=== PATIENT | female | born 1980 | race Caucasian/White ===

== ENCOUNTER 2016-11-01 00:14 | Emergency (ER) | payer OTHER ==
[2016-11-01 00:51] VITALS: BP 112/65; PULSE 80; O2SAT 94
[2016-11-01] MEDS ORDERED: Phenergan 25 MG INJ IV ONE (00:57)
[2016-11-01] MEDS ORDERED: Sodium Chloride 0.9% 1000 ML 1,000 ML IV STA (00:57)
[2016-11-01] MEDS ORDERED: TORAdol 30 mg Injection IV ONE (00:59)
--- NOTE | 2016-11-01 01:04 | ERPHSYRPT ---
- History of Present Illness Time Seen by Provider: 11/01/16 00:32 Historian: patient Exam Limitations: no limitations Patient Subjective Stated Complaint: pt is co right lower quad pain redianting to righ back to right groin for 3 days po nv no fever -she is worried because of her historuy of ovarian cancer -she is out of her neurontin that she take for back pain Triage Nursing Assessment: pt is awake and alert and able to answer questions Physician History: FOR THE PAST 3 DAYS PT HAS HAD SHARP CRAMPING RIGHT LOWER QUADRANT ABDOMINAL PAIN WORSE TODAY WITH VOMITING X7. LAST BM WAS 2 HOURS AGO & WNL. PT DENIES CHEST PAIN, SHORTNESS OF AIR, DYSURIA. Allergies/Adverse Reactions: levofloxacin [From Levaquin] Allergy (Mild, Verified 05/06/16 16:09) morphine Allergy (Mild, Verified 05/06/16 16:09) Penicillins Allergy (Mild, Verified 05/06/16 16:09) pantoprazole sodium [From Protonix] Allergy (Verified 05/06/16 16:09) prednisone Allergy (Verified 05/06/16 16:09) naproxen [From Naprosyn] Adverse Reaction (Mild, Verified 05/06/16 16:09) NOSE BLEED Home Medications: Omeprazole Magnesium [Prilosec Otc] 20 mg PO DAILY 12/18/15 [History] Hydroxyzine Pamoate [Vistaril] 25 mg PO DAILY 02/13/16 [History] Tizanidine HCl 4 mg [Zanaflex 4 MG] 4 mg PO Q8HPRN PRN 05/06/16 [History] Hydrocodone Bit/Acetaminophen [[place] 7.5-325 Tablet] 1 each PO Q6HPRN PRN [History] Bupropion HCl 150 mg Sr [Wellbutrin SR 150 MG] 150 mg PO BID 06/24/16 [ History] Lorazepam 0.5 mg [Ativan 0.5 MG] 0.5 mg PO DAILY 06/24/16 [History] Hx Tetanus, Diphtheria Vaccination/Date Given: No Hx Influenza Vaccination/Date Given: No Hx Pneumococcal Vaccination/Date Given: Yes - Review of Systems Constitutional: No Fever Respiratory: No Dyspnea Cardiac: No Chest Pain Abdominal/Gastrointestinal: Abdominal Pain, Vomiting All Other Systems: Reviewed and Negative - Past Medical History Pertinent Past Medical History: Yes Neurological History: Migraines ENT History: No Pertinent History Cardiac History: Arrhythmia, Other Respiratory History: Asthma Endocrine Medical History: No Pertinent History Musculoskeletal History: Fibromyalgia, Osteoarthritis GI Medical History: Crohns Disease History: No Pertinent History Psycho-Social History: Anxiety Female Reproductive Disorders: Cervical Cancer, Ovarian Cancer Other Medical History: myocardial bridge, murmur, low blood pressure - Past Surgical History Past Surgical History: Yes Neuro Surgical History: No Pertinent History Cardiac: Cardiac Catheterization Respiratory: No Pertinent History Gastrointestinal: Cholecystectomy Genitourinary: No Pertinent History Musculoskeletal: No Pertinent History Female Surgical History: Section, Hysterectomy Other Surgical History: ABLASION UTERINE - Social History Smoking Status: Current every day smoker How long have you smoked: 16 Exposure to second hand smoke: Yes Drug Use: none Patient Lives Alone: No - Female History Hx Last Menstrual Period: hyst Hx Now: No - Nursing Vital Signs Nursing Vital Signs: Initial Vital Signs Temperature 98 F Temperature Source Tympanic Pulse Rate 80 Respiratory Rate 16 Blood Pressure [] 112/65 Pain Intensity 8 - Physical Exam General Appearance: alert Eye Exam: PERRL/EOMI Ears, Nose, Throat Exam: pharynx normal, moist mucous membranes Neck Exam: normal inspection Respiratory Exam: lungs clear Cardiovascular Exam: normal heart sounds Gastrointestinal/Abdomen Exam: soft, normal bowel sounds, tenderness (MILD SUPRAPUBIC AND RLQ ABDOMINAL TENDERNESS.) Back Exam: normal range of motion Extremity Exam: normal inspection, No pedal edema Neurologic Exam: alert, cooperative Skin Exam: warm, dry SpO2 Interpretation: normal SpO2: 94 Oxygen Delivery: Room Air - Course Nursing assessment & vital signs reviewed: Yes - Radiology Ultrasound Exam Pelvis Ultrasound: Other (TECH REPORT: NO OVARIES FOUND; NO ABSCESS.) Ordered Tests: Active Orders 24 hr Category Date Time Status IV Insertion STAT Care 11/01/16 00:57 Active PELVIC [US] Stat Exams 11/01/16 00:57 Ordered AMYLASE Stat Lab 11/01/16 01:25 Completed CBC W DIFF Stat Lab 11/01/16 01:25 Completed CMP Stat Lab 11/01/16 01:25 Completed LIPASE Stat Lab 11/01/16 01:25 Completed MAGNESIUM Stat Lab 11/01/16 01:25 Completed UA W/ MICROSCOPIC Stat Lab 11/01/16 02:00 Completed Medication Summary Generic Name Dose Route Start Last Admin Trade Name Viridiana PRN Reason Stop Dose Admin Magnesium Oxide 400 mg 11/01/16 10:00 Mag-Ox 400 PO 12/01/16 09:59 BID ALENA Discontinued Medications Generic Name Dose Route Start Last Admin Trade Name Viridiana PRN Reason Stop Dose Admin Sodium Chloride 1,000 mls @ 999 mls/hr 11/01/16 00:57 11/01/16 01:30 Sodium Chloride 0.9% 1000 Ml IV 11/01/16 01:57 999 mls/hr .Q1H1M STA Administration Sodium Chloride Confirm 11/01/16 01:26 Sodium Chloride 0.9% 1000 Ml Administered 11/01/16 01:27 Dose 1,000 mls @ ud .ROUTE .STK-MED ONE Ketorolac Tromethamine 30 mg 11/01/16 00:59 11/01/16 01:30 Toradol 30 Mg Injection IV 11/01/16 01:00 30 mg STAT ONE Administration Ketorolac Tromethamine Confirm 11/01/16 01:26 Toradol 30 Mg Injection Administered 11/01/16 01:27 Dose 30 mg .ROUTE .STK-MED ONE Promethazine HCl 12.5 mg 11/01/16 00:57 11/01/16 01:30 Phenergan 25 Mg Inj IV 11/01/16 00:58 12.5 mg STAT ONE Administration Promethazine HCl Confirm 11/01/16 01:26 Phenergan 25 Mg Inj Administered 11/01/16 01:27 Dose 25 mg .ROUTE .STK-MED ONE Lab/Rad Data: Laboratory Result Diagrams 11/01/16 01:25 11/01/16 01:25 Laboratory Results 11/01/16 11/01/16 11/01/16 Range/Units 02:00 01:25 01:25 WBC 7.2 (4.0-10.5) K/mm3 RBC 5.23 (4.1-5.4) M/mm3 Hgb 14.4 (12.0-16.0) gm/dl Hct 45.4 (35-47) % MCV 86.8 (78-100) fl MCH 27.5 (26-32) pg MCHC 31.7 L (32-36) g/dl RDW 15.1 H (11.5-14.0) % Plt Count 265 (150-450) K/mm3 MPV 10.8 H (6-9.5) fl Gran % 47.6 (36.0-66.0) % Lymphocytes % 40.5 (24.0-44.0) % Monocytes % 9.5 (0.0-12.0) % Eosinophils % 2.1 (0.00-5.0) % Basophils % 0.3 (0.0-0.4) % Basophils # 0.02 (0-0.4) Sodium 142 (136-145) mEq/L Potassium 3.5 (3.5-5.1) mEq/L Chloride 106 (98-107) mEq/L Carbon Dioxide 28.3 (21-32) mEq/L Anion Gap 11.4 (5-15) MEQ/L BUN 9 (9-20) mg/dL Creatinine 1.03 (0.55-1.30) mg/dl Estimated GFR > 60 ML/MIN Glucose 100 (70-110) MG/DL Calcium 8.8 (8.5-10.1) mg/dL Magnesium 1.7 L (1.8-2.4) mg/dL Total Bilirubin 0.3 (0.2-1.0) mg/dL AST 14 L (15-37) U/L ALT 21 (12-78) U/L Alkaline Phosphatase 80 (46-116) U/L Serum Total Protein 6.3 L (6.4-8.2) gm/dL Albumin 2.9 L (3.4-5.0) g/dL Amylase 28 (25-115) U/L Lipase 75 (73-393) U/L Ur Collection Type CLEAN CATCH Urine Color YELLOW (YELLOW) Urine Appearance CLOUDY (CLEAR) Urine pH 6.0 (5-6) Ur Specific [place] >=1.030 (1.005-1.025) Urine Protein 30 (Negative) Urine Glucose (UA) NEGATIVE (NEGATIVE) mg/dL Urine Ketones TRACE (NEGATIVE) Urine Nitrite NEGATIVE (NEGATIVE) Urine Bilirubin NEGATIVE (NEGATIVE) Urine Urobilinogen 0.2 (0-1) mg/dL Urine WBC (Auto) NEGATIVE (NEGATIVE) Urine RBC (Auto) NEGATIVE (0-5) Mateo/ul Ur Epithelial Cells FEW (FEW) /HPF Urine Bacteria RARE (NEGATIVE) /HPF Urine Mucus SLIGHT (NEGATIVE) /HPF Specimen Received 11/01/16:0200 - Departure Time of Disposition: 02:33 Departure Disposition: Home Clinical Impression: ABDOMINAL PAIN, HYPOMAGNESEMIA, FIBROMYALGIA, CROHN'S DISEASE, ANXIETY Condition: Fair Critical Care Time: No Instructions: Abdominal Pain-Adult Additional Instructions: FOLLOW UP WITH PRIVATE DOCTOR TOMORROW. Prescriptions: Promethazine HCl 25 mg [Phenergan 25 mg] 25 mg PO Q4H PRN PRN #14 tablet PRN Reason: Nausea/Vomiting
[2016-11-01] MEDS ORDERED: TORAdol 30 mg Injection ONE (01:26)
[2016-11-01] MEDS ORDERED: Sodium Chloride 0.9% 1000 ML 1,000 ML ONE (01:26)
[2016-11-01] MEDS ORDERED: Phenergan 25 MG INJ ONE (01:26)
[2016-11-01 01:34] LABS: BASOPHIL % 0.3 % (0.0-0.4); Eosinophil % 2.1 % (0.00-5.0); Granulocytes % 47.6 % (36.0-66.0); Lymphocytes % 40.5 % (24.0-44.0); Mean Cell Volume 86.8 fl (78-100); Mean Corpuscular Hemoglobin 27.5 pg (26-32); Mean Platelet Volume 10.8 fl (6-9.5); Monocytes % 9.5 % (0.0-12.0); Platelet Count 265 K/mm3 (150-450); Red Blood Count 5.23 M/mm3 (4.1-5.4); Red Cell Distribution Width 15.1 % (11.5-14.0); White Blood Count 7.2 K/mm3 (4.0-10.5)
[2016-11-01 01:53] LABS: BLOOD UREA NITROGEN 9 mg/dL (9-20)
[2016-11-01 02:08] LABS: Collection Type CLEAN CATCH
[2016-11-01 02:12] LABS: Bacteria RARE /HPF (NEGATIVE); COMPLETE URINE MICROSCOPIC? YES; Epithelial Cells FEW /HPF (FEW); Mucus SLIGHT /HPF (NEGATIVE)
[2016-11-01 02:23] LABS: ALBUMIN 2.9 g/dL (3.4-5.0); ALKALINE PHOSPHATASE 80 U/L (46-116); ANION GAP 11.4 MEQ/L (5-15); BILIRUBIN,TOTAL 0.3 mg/dL (0.2-1.0); CHLORIDE 106 mEq/L (98-107); Carbon Dioxide 28.3 mEq/L (21-32); Glucose 100 MG/DL (70-110); LIPASE 75 U/L (73-393); MAGNESIUM 1.7 mg/dL (1.8-2.4); Potassium 3.5 mEq/L (3.5-5.1); SGOT/AST 14 U/L (15-37); SGPT/ALT 21 U/L (12-78); SODIUM 142 mEq/L (136-145); Total Protein 6.3 gm/dL (6.4-8.2)
[2016-11-01] MEDS ORDERED: MAG-OX 400 ONE (02:39)
[2016-11-01] MEDS ORDERED: MAG-OX 400 PO SCH (10:00)
--- NOTE | 2016-11-01 10:05 | XRAY ---
Indication: Right lower quadrant pain. Partial hysterectomy including left oophorectomy. Two-dimensional transabdominal and transvaginal pelvic ultrasound was performed. Comparison: July 28, 2012 Uterus is now surgically absent. Neither left or right ovaries are seen. No suspicious solid/cystic pelvic mass or fluid collection. Impression: Uterus and ovaries not seen. No suspicious pelvic mass or fluid collection. Comment: Preliminary report was given.
== END 2016-11-01 03:30 | disposition home or self-care (01) ==
LOC: ED 00:14
DX: R10.31 Right lower quadrant pain (principal); E83.42 Hypomagnesemia; M79.7 Fibromyalgia; K50.90 Crohn's disease, unspecified, without complications; F41.9 Anxiety disorder, unspecified
CPT/HCPCS: 36000; 36415; 76856; 80053; 81000; 82150; 83690; 83735; 85025; 96365; 96374; 96375; 99283; J1885; J2550

== ENCOUNTER 2016-12-22 18:16 | Emergency (ER) | payer OTHER ==
[2016-12-22] MEDS ORDERED: DECADRON 10MG INJ. IM ONE (18:48)
[2016-12-22] MEDS ORDERED: ZOFRAN ODT 4 MG PO ONE (18:48)
[2016-12-22] MEDS ORDERED: ZOFRAN ODT 4 MG ONE (18:50)
[2016-12-22] MEDS ORDERED: DECADRON 10MG INJ. ONE (18:51)
--- NOTE | 2016-12-22 18:53 | ERPHSYRPT ---
- History of Present Illness Time Seen by Provider: 12/22/16 18:47 Source: patient Patient Subjective Stated Complaint: pt states she has had a fever and cough for the past 24 hrs. Triage Nursing Assessment: pt pink, warm, dry. lung sounds coarse throughout. Physician History: CC: cough Hx: 36 y/o patient with hx of asthma. She has one day hx of cough, myalgias, sore throat, headache. Cough worse despite nebs and almost out of inhaler. No hx of DM. Not . Symptoms moderate. Timing/Duration: yesterday Cough Quality/Degree: mild, moderate Allergies/Adverse Reactions: levofloxacin [From Levaquin] Allergy (Mild, Verified 12/22/16 18:36) morphine Allergy (Mild, Verified 12/22/16 18:36) Penicillins Allergy (Mild, Verified 12/22/16 18:36) pantoprazole sodium [From Protonix] Allergy (Verified 12/22/16 18:36) prednisone Allergy (Verified 12/22/16 18:36) naproxen [From Naprosyn] Adverse Reaction (Mild, Verified 12/22/16 18:36) NOSE BLEED Hx Tetanus, Diphtheria Vaccination/Date Given: Yes (up to date) Hx Influenza Vaccination/Date Given: No Hx Pneumococcal Vaccination/Date Given: No Immunizations Up to Date: Yes - Review of Systems Constitutional: Fever, Chills, Fatigue, Malaise Eyes: No Symptoms Ears, Nose, & Throat: Throat Pain Respiratory: Cough Abdominal/Gastrointestinal: No Abdominal Pain, No Nausea, No Vomiting, No Diarrhea Skin: No Rash Neurological: Headache All Other Systems: Reviewed and Negative - Past Medical History Pertinent Past Medical History: Yes Neurological History: Migraines ENT History: No Pertinent History Cardiac History: Arrhythmia, Other Respiratory History: Asthma Endocrine Medical History: No Pertinent History Musculoskeletal History: Fibromyalgia, Osteoarthritis GI Medical History: Crohns Disease History: No Pertinent History Psycho-Social History: Anxiety Female Reproductive Disorders: Cervical Cancer, Ovarian Cancer Other Medical History: myocardial bridge, murmur, low blood pressure - Past Surgical History Past Surgical History: Yes Neuro Surgical History: No Pertinent History Cardiac: Cardiac Catheterization Respiratory: No Pertinent History Gastrointestinal: Cholecystectomy Genitourinary: No Pertinent History Musculoskeletal: No Pertinent History Female Surgical History: Section, Hysterectomy Other Surgical History: ABLASION UTERINE - Social History Smoking Status: Current every day smoker How long have you smoked: 15 Exposure to second hand smoke: Yes Drug Use: none Patient Lives Alone: No - Female History Hx Last Menstrual Period: hyster Hx Now: No - Nursing Vital Signs Nursing Vital Signs: Initial Vital Signs Temperature 98.1 F Pulse Rate 99 Respiratory Rate 18 Blood Pressure [Left Arm] 106/67 Pain Intensity 7 - Physical Exam General Appearance: alert Eye Exam: PERRL/EOMI Ears, Nose, Throat Exam: normal ENT inspection, moist mucous membranes Neck Exam: normal inspection, non-tender, supple Respiratory Exam: wheezing (faint scattered) Cardiovascular Exam: regular rate/rhythm Gastrointestinal/Abdomen Exam: soft, No tenderness, No distention, No mass, No guarding Back Exam: normal inspection, normal range of motion Extremity Exam: normal inspection, normal range of motion Neurologic Exam: alert, oriented x 3, cooperative Skin Exam: warm, dry, No rash SpO2 Interpretation: normal SpO2: 98 Oxygen Delivery: Room Air - Course Nursing assessment & vital signs reviewed: Yes - Progress Progress Note: 12/22/16 18:51 She likely has flu and asthmatic bronchitis. Needs refill of alb MDI. She chose IM kenalog over po prednisone. Will release with instructions. Counseled pt/family regarding: diagnosis, need for follow-up - Departure Time of Disposition: 18:52 Departure Disposition: Home Clinical Impression: flu like syndrome, Acute asthma exacerbation Condition: Stable Critical Care Time: No Referrals: SLADE SHEPPARD MD [Primary Care Provider] - Instructions: Fever (Symptom) -- Adult, Viral Upper Respiratory Infection -- Adult, Asthma -- Adult Additional Instructions: UPPER RESPIRATORY INFECTIONS 1. The signs and symptoms of a cold may last up to 10 days. These illnesses are due to viruses which are not treatable with antibiotics. 2. The following suggestions can aid in recovery and to minimize symptoms: A. Increase fluid intake. B. Acetaminophen or Ibuprofen as directed. C. Avoid smoking environments as this will increase the risk of developing pneumonia. D. For children, may use a cool mist vaporizer in the child's room. 3. Contact your Family Physician if you note: A. Persisten fever >103 for more than 3 days B. Breathing difficulty C. Productive cough of yellow/green sputum D. Illness greater than 7 days E. Persistent vomiting F. Stiff neck Rx albuterol Rx zofran ODT as needed for nausea Drink plenty of fluids Prescriptions: Ondansetron [Zofran Odt] 4 mg PO Q6HPRN PRN #10 tab.rapdis PRN Reason: Nausea/Vomiting Albuterol Sulfate [Albuterol Sulfate Hfa] 2 puff IH Q4-6HPRN PRN #1 hfa.[email or web address] PRN Reason: cough or wheeze
[2016-12-22 18:59] VITALS: BP 117/60; PULSE 87; O2SAT 99
== END 2016-12-22 18:58 | disposition home or self-care (01) ==
LOC: ED 18:16
DX: J45.901 Unspecified asthma with (acute) exacerbation (principal); R50.9 Fever, unspecified; R05 Cough; J02.9 Acute pharyngitis, unspecified; R51 Headache
CPT/HCPCS: 96372; 99284; J1100; Q0162

== ENCOUNTER 2016-12-29 15:24 | Observation (INO) | payer OTHER ==
[2016-12-29] MEDS ORDERED: PROVENTIL 2.5 MG/3 ML NEB IH ONE ×4 (15:36→16:18)
[2016-12-29] MEDS ORDERED: DUONEB 0.5-3 MG/3 ml Neb IH ONE ×2 (15:36→15:48)
[2016-12-29] MEDS ORDERED: DECADRON 10MG INJ. IM ONE (15:36)
[2016-12-29] MEDS ORDERED: TYLENOL 325 MG PO ONE (15:37)
[2016-12-29] MEDS ORDERED: DECADRON 10MG INJ. ONE (15:39)
[2016-12-29] MEDS ORDERED: TYLENOL 325 MG ONE (15:39)
--- NOTE | 2016-12-29 15:44 | ERPHSYRPT ---
- History of Present Illness Time Seen by Provider: 12/29/16 15:26 Source: patient Patient Subjective Stated Complaint: PT REPORTS BEING DX WITH THE FLU A FEW DAYS AGO OR LAST WEEK-STATES SHE HAS HAD A NONPRODUCTIVE COUGH-STATES THIS AM SHE WOKE UP IN AN ASTHMA ATTACK Triage Nursing Assessment: PT PINK WARM ET DRY-AUDIBLE WHEEZES NOTED-SLIGHT RETRACTION SNTOED-PT ABLE TO SPEAK IN SHORT SENTENCES ONLY Physician History: CC: cough Hx: 36 y/o hysterectomized patient of Dr Sheppard with hx of asthma and smoking. She awoke today with asthma, cough, wheezing. She used her neb at 8AM. She had decadron shot two weeks ago for URI. No fever or chills. Severity of Dyspnea-Max: moderate Severity of Dyspnea-Current: moderate Allergies/Adverse Reactions: levofloxacin [From Levaquin] Allergy (Mild, Verified 12/29/16 15:29) morphine Allergy (Mild, Verified 12/29/16 15:29) Penicillins Allergy (Mild, Verified 12/29/16 15:29) pantoprazole sodium [From Protonix] Allergy (Verified 12/29/16 15:29) prednisone Allergy (Verified 12/29/16 15:29) naproxen [From Naprosyn] Adverse Reaction (Mild, Verified 12/29/16 15:29) NOSE BLEED Home Medications: Lorazepam 0.5 mg [Ativan 0.5 MG] 0.5 mg PO UD PRN 12/29/16 [History] Hx Tetanus, Diphtheria Vaccination/Date Given: Yes Hx Influenza Vaccination/Date Given: No Hx Pneumococcal Vaccination/Date Given: No Immunizations Up to Date: Yes - Review of Systems Constitutional: Fatigue, Malaise, No Fever, No Chills Eyes: No Symptoms Ears, Nose, & Throat: No Symptoms Respiratory: Cough, Dyspnea, Wheezing Cardiac: No Chest Pain Abdominal/Gastrointestinal: No Abdominal Pain, No Nausea, No Vomiting Skin: No Rash Neurological: No Focal Weakness, No Headache All Other Systems: Reviewed and Negative - Past Medical History Pertinent Past Medical History: Yes Neurological History: Migraines ENT History: No Pertinent History Cardiac History: Arrhythmia, Other Respiratory History: Asthma Endocrine Medical History: No Pertinent History Musculoskeletal History: Fibromyalgia, Osteoarthritis GI Medical History: Crohns Disease History: No Pertinent History Psycho-Social History: Anxiety Female Reproductive Disorders: Cervical Cancer, Ovarian Cancer Other Medical History: myocardial bridge, murmur, low blood pressure - Past Surgical History Past Surgical History: Yes Neuro Surgical History: No Pertinent History Cardiac: Cardiac Catheterization Respiratory: No Pertinent History Gastrointestinal: Cholecystectomy Genitourinary: No Pertinent History Musculoskeletal: No Pertinent History Female Surgical History: Section, Hysterectomy Other Surgical History: ABLASION UTERINE - Social History Smoking Status: Current every day smoker How long have you smoked: 15 Exposure to second hand smoke: Yes Drug Use: none Patient Lives Alone: No - Female History Hx Last Menstrual Period: HYSTERECTOMY Hx Now: No - Nursing Vital Signs Nursing Vital Signs: Initial Vital Signs Temperature 98.7 F Temperature Source Oral Pulse Rate 82 Respiratory Rate 18 Blood Pressure [Right Arm] 102/63 Pain Intensity 7 - Physical Exam General Appearance: alert, obese Eye Exam: PERRL/EOMI Ears, Nose, Throat Exam: normal pharynx Neck Exam: normal inspection, supple Respiratory Exam: wheezing (some tachypnea, talks in full sentences) Cardiovascular/Chest Exam: regular rate/rhythm Abdominal/Gastrointestinal Exam: soft, No tenderness, No distention Extremity Exam: non-tender, normal range of motion, no calf tenderness, no pedal edema Neurologic Exam: alert, oriented x 3, cooperative, sensation nml, No motor deficits Skin Exam: warm, dry, No rash SpO2 Interpretation: normal SpO2: 96 Oxygen Delivery: Room Air - Course Nursing assessment & vital signs reviewed: Yes EKG Interpreted by Me: RATE (78), Sinus Rhythm, NORMAL AXIS, NORMAL INTERVALS ( QTc 446), Non-specific ST Changes Ordered Tests: Active Orders 24 hr Category Date Time Status Allergist/Md STAT Care 12/29/16 17:46 Active EKG-ER Only STAT Care 12/29/16 17:46 Active Oxygen-ED Only NASAL CANNULA 2 lpm Care 12/29/16 18:45 Active Pulse Oximetry (ED) STAT Care 12/29/16 17:04 Active CHEST 1 VIEW (PORTABLE) Stat Exams 12/29/16 15:36 Completed CBC W DIFF Stat Lab 12/29/16 17:20 Completed CMP Stat Lab 12/29/16 17:20 Completed MAGNESIUM Stat Lab 12/29/16 17:20 Completed Respiratory Nebulizer STAT RT 12/29/16 15:36 Completed Respiratory Nebulizer STAT RT 12/29/16 16:18 Completed Medication Summary Generic Name Dose Route Start Last Admin Trade Name Viridiana PRN Reason Stop Dose Admin Magnesium Sulfate/Dextrose 100 mls @ 100 mls/hr 12/29/16 17:15 12/29/16 17:38 Magnesium 1 Gm / 100 Ml D5w IV 12/29/16 19:14 100 mls/hr Q1H ALENA Administration Discontinued Medications Generic Name Dose Route Start Last Admin Trade Name Viridiana PRN Reason Stop Dose Admin Acetaminophen 650 mg 12/29/16 15:37 12/29/16 15:40 Tylenol 325 Mg PO 12/29/16 15:38 650 mg STAT ONE Administration Acetaminophen Confirm 12/29/16 15:39 Tylenol 325 Mg Administered 12/29/16 15:40 Dose 650 mg .ROUTE .STK-MED ONE Albuterol Sulfate 2.5 mg 12/29/16 15:36 12/29/16 16:07 Proventil 2.5 Mg/3 Ml Neb IH 12/29/16 15:37 2.5 mg STAT ONE Administration Albuterol Sulfate Confirm 12/29/16 15:48 Proventil 2.5 Mg/3 Ml Neb Administered 12/29/16 15:49 Dose 2.5 mg IH .STK-MED ONE Albuterol Sulfate 2.5 mg 12/29/16 16:18 12/29/16 16:25 Proventil 2.5 Mg/3 Ml Neb IH 12/29/16 16:19 2.5 mg STAT ONE Administration Albuterol Sulfate Confirm 12/29/16 16:18 Proventil 2.5 Mg/3 Ml Neb Administered 12/29/16 16:19 Dose 2.5 mg IH .STK-MED ONE Albuterol/Ipratropium 3 ml 12/29/16 15:36 12/29/16 15:52 Duoneb 0.5-3 Mg/3 Ml Neb IH 12/29/16 15:37 3 ml STAT ONE Administration Albuterol/Ipratropium Confirm 12/29/16 15:48 Duoneb 0.5-3 Mg/3 Ml Neb Administered 12/29/16 15:49 Dose 3 ml IH .STK-MED ONE Dexamethasone Sodium Phosphate 10 mg 12/29/16 15:36 12/29/16 15:41 Decadron 10mg Inj. IM 12/29/16 15:37 10 mg STAT ONE Administration Dexamethasone Sodium Phosphate Confirm 12/29/16 15:39 Decadron 10mg Inj. Administered 12/29/16 15:40 Dose 10 mg .ROUTE .STK-MED ONE Hydroxyzine HCl 50 mg 12/29/16 17:04 12/29/16 17:38 Vistaril 50 Mg/Ml IM 12/29/16 17:05 50 mg STAT ONE Administration Hydroxyzine HCl Confirm 12/29/16 17:36 Vistaril 50 Mg/Ml Administered 12/29/16 17:37 Dose 50 mg IM .STK-MED ONE Magnesium Sulfate/Dextrose Confirm 12/29/16 17:37 Magnesium 1 Gm / 100 Ml D5w Administered 12/29/16 17:38 Dose 200 mls @ ud IV .STK-MED ONE Potassium Bicarbonate 50 meq 12/29/16 17:46 12/29/16 17:54 K-Lyte 25 Meq PO 12/29/16 17:47 50 meq STAT ONE Administration Potassium Bicarbonate Confirm 12/29/16 17:49 K-Lyte 25 Meq Administered 12/29/16 17:50 Dose 50 meq .ROUTE .STK-MED ONE Lab/Rad Data: Laboratory Result Diagrams 12/29/16 17:20 12/29/16 17:20 Laboratory Results 12/29/16 12/29/16 12/29/16 Range/Units 17:20 17:20 17:20 WBC 17.0 H (4.0-10.5) K/mm3 RBC 5.07 (4.1-5.4) M/mm3 Hgb 14.5 (12.0-16.0) gm/dl Hct 43.0 (35-47) % MCV 84.8 (78-100) fl MCH 28.6 (26-32) pg MCHC 33.7 (32-36) g/dl RDW 15.1 H (11.5-14.0) % Plt Count 228 (150-450) K/mm3 MPV 11.1 H (6-9.5) fl Gran % 79.4 H (36.0-66.0) % Lymphocytes % 15.3 L (24.0-44.0) % Monocytes % 5.0 (0.0-12.0) % Eosinophils % 0.2 (0.00-5.0) % Basophils % 0.1 (0.0-0.4) % Basophils # 0.02 (0-0.4) Sodium 140 (136-145) mEq/L Potassium 2.6 L* (3.5-5.1) mEq/L Chloride 105 (98-107) mEq/L Carbon Dioxide 25.8 (21-32) mEq/L Anion Gap 12.9 (5-15) MEQ/L BUN 10 (9-20) mg/dL Creatinine 0.91 (0.55-1.30) mg/dl Estimated GFR > 60 ML/MIN Glucose 124 H (70-110) MG/DL Calcium 8.5 (8.5-10.1) mg/dL Magnesium 1.7 L (1.8-2.4) mg/dL Total Bilirubin 0.6 (0.2-1.0) mg/dL AST 28 (15-37) U/L ALT 65 (12-78) U/L Alkaline Phosphatase 88 (46-116) U/L Serum Total Protein 6.8 (6.4-8.2) gm/dL Albumin 3.0 L (3.4-5.0) g/dL - Progress Progress Note: 12/29/16 15:44 IM decadron given. 12/29/16 16:26 Procedures: [id number] RAD/CHEST 1 VIEW (PORTABLE) Indication: Cough. Comparison: January 13, 2014. Portable chest remains clear. Heart and mediastinal structures within normal limits for AP portable technique. Bony thorax intact. Impression: Stable nonacute chest. Reported by: EVE CORDOVA DO Signed by: EVE CORDOVA DO Signed date/ time: 12/29/16 1613 12/29/16 18:47 K low. PO K given. She still ius wheezing despite steroids and nebs. She prefers obs. RA pulse ox 88-91%. Called Dr Suarez for [place] and will place in obs. Counseled pt/family regarding: lab results, diagnosis, need for follow-up, rad results - Departure Time of Disposition: 18:48 Departure Disposition: Observation Clinical Impression: Hypokalemia Acute asthma exacerbation Qualifiers: Asthma severity: moderate persistent Qualified Code(s): J45.41 - Moderate persistent asthma with (acute) exacerbation Condition: Fair Critical Care Time: No Referrals: SLADE SHEPPARD MD [Primary Care Provider] -
--- NOTE | 2016-12-29 16:13 | XRAY ---
Indication: Cough. Comparison: January 13, 2014. Portable chest remains clear. Heart and mediastinal structures within normal limits for AP portable technique. Bony thorax intact. Impression: Stable nonacute chest.
[2016-12-29] MEDS ORDERED: Vistaril 50 MG/ML IM ONE ×2 (17:04→17:36)
[2016-12-29 17:23] LABS: BASOPHIL % 0.1 % (0.0-0.4); Eosinophil % 0.2 % (0.00-5.0); Granulocytes % 79.4 % (36.0-66.0); Lymphocytes % 15.3 % (24.0-44.0); Mean Cell Volume 84.8 fl (78-100); Mean Corpuscular Hemoglobin 28.6 pg (26-32); Mean Platelet Volume 11.1 fl (6-9.5); Platelet Count 228 K/mm3 (150-450); Red Blood Count 5.07 M/mm3 (4.1-5.4); Red Cell Distribution Width 15.1 % (11.5-14.0)
[2016-12-29] MEDS ORDERED: Magnesium 1 Gm / 100 Ml D5W*** 200 ML IV ONE (17:37)
[2016-12-29] MEDS: Magnesium 1 Gm / 100 Ml D5W*** 100 ML IV SCH ×2 (17:38→18:50)
[2016-12-29 17:45] LABS: ALKALINE PHOSPHATASE 88 U/L (46-116); ANION GAP 12.9 MEQ/L (5-15); BILIRUBIN,TOTAL 0.6 mg/dL (0.2-1.0); BLOOD UREA NITROGEN 10 mg/dL (9-20); CHLORIDE 105 mEq/L (98-107); Carbon Dioxide 25.8 mEq/L (21-32); Glucose 124 MG/DL (70-110); SGOT/AST 28 U/L (15-37); SGPT/ALT 65 U/L (12-78); SODIUM 140 mEq/L (136-145); Total Protein 6.8 gm/dL (6.4-8.2)
[2016-12-29] MEDS ORDERED: K-LYTE 25 MEQ PO ONE (17:46)
[2016-12-29 17:47] LABS: Potassium 2.6 mEq/L (3.5-5.1)
[2016-12-29] MEDS ORDERED: K-LYTE 25 MEQ ONE (17:49)
[2016-12-29] MEDS ORDERED: Vibramycin 100 MG PO ONE (18:49)
[2016-12-29] MEDS ORDERED: Vibramycin 100 MG ONE (18:52)
[2016-12-29] MEDS ORDERED: BABY ASPIRIN 81 MG CHEW PO ONE (20:03)
[2016-12-29] MEDS ORDERED: Nitrostat 0.4 MG (ED) SL ONE ×3 (20:04→23:21)
[2016-12-29 20:37] LABS: Potassium 2.8 mEq/L (3.5-5.1); TROPONIN < 0.017 ng/ml (0.000-0.056)
[2016-12-29] MEDS ORDERED: D5w/0.45NS W/ 40MEQ KCl 1000 Ml 1,000 ML IV ONE (20:45)
[2016-12-29] MEDS ORDERED: TYLENOL 325 MG PO PRN (20:55)
[2016-12-29] MEDS: DUONEB 0.5-3 MG/3 ml Neb IH SCH (21:28)
[2016-12-29] MEDS: D5w/0.45NS W/ 40MEQ KCl 1000 Ml 1,000 ML IV SCH (21:30)
[2016-12-29] MEDS ORDERED: PROVENTIL 2.5 MG/3 ML NEB IH PRN (21:59)
[2016-12-29] MEDS: NORCO 7.5/325 MG TAB PO PRN (22:18)
[2016-12-29] MEDS: Ativan 0.5 MG PO PRN (22:19)
[2016-12-29] MEDS: Pepcid 20 MG VIAL IV SCH (22:46)
[2016-12-29] MEDS: Klor Con 10 MEQ PO SCH (22:46)
[2016-12-29] MEDS: Vibramycin 100 MG PO SCH (22:47)
[2016-12-29] MEDS ORDERED: BABY ASPIRIN 81 MG CHEW ONE (23:21)
[2016-12-30] MEDS: DUONEB 0.5-3 MG/3 ml Neb IH SCH ×7 (03:18→23:43)
[2016-12-30 05:49] LABS: ANION GAP 13.1 MEQ/L (5-15); BLOOD UREA NITROGEN 14 mg/dL (9-20); CHLORIDE 107 mEq/L (98-107); Carbon Dioxide 25.5 mEq/L (21-32); Glucose 194 MG/DL (70-110); Potassium 3.6 mEq/L (3.5-5.1); SODIUM 142 mEq/L (136-145)
[2016-12-30] MEDS: D5w/0.45NS W/ 40MEQ KCl 1000 Ml 1,000 ML IV SCH ×2 (06:25→23:30)
--- NOTE | 2016-12-30 08:26 | PCM.HP ---
History of Present Illness - Chief Complaint Chief Complaint: asthma History of Present Illness: is a 36 year old female with a history of asthma who presented to the ER with 1 week of cough, shortness of breath and feeling poorly. She was diagnosed with flu last week and given IM steroid shot and sent home from ER, returned worse yesterday. Cough is nonproductive, no recent fever. - Review of Systems Constitutional: No Fever, No Chills Respiratory: Cough, Wheezing Cardiac: No Symptoms Abdominal/Gastrointestinal: No Abdominal Pain, No Nausea, No Vomiting, No Diarrhea Skin: No Rash All Other Systems: Reviewed and Negative Medications & Allergies Home Medications: Home Medication List Albuterol Sulfate [Albuterol Sulfate Hfa] 2 puff IH Q4-6HPRN PRN #1 hfa.aer.ad 12/22/16 [Rx Confirmed 12/29/16] Hydrocodone Bit/Acetaminophen [[place] 7.5-325 Tablet] 1 each PO Q8H PRN PRN 12/29 [History Confirmed 12/29/16] Lorazepam 0.5 mg [Ativan 0.5 MG] 0.5 mg PO UD PRN 12/29/16 [History Confirmed 12/29/16] Allergies/Adverse Reactions: Allergies Allergy/AdvReac Type Severity Reaction Status Date / Time levofloxacin [From Levaquin] Allergy Mild Verified 12/29/16 15:29 morphine Allergy Mild Verified 12/29/16 15:29 Penicillins Allergy Mild Verified 12/29/16 15:29 pantoprazole sodium Allergy Verified 12/29/16 15:29 [From Protonix] prednisone Allergy Verified 12/29/16 15:29 naproxen [From Naprosyn] AdvReac Mild Verified 12/29/16 15:29 - Past Medical History Past Medical History: Yes Neurological History: Migraines ENT History: No Pertinent History Cardiac History: Arrhythmia, Other Respiratory History: Asthma Endocrine Medical History: No Pertinent History Musculoskelatal History: Fibromyalgia, Osteoarthritis GI Medical History: Crohns Disease History: No Pertinent History Pyscho-Social History: Anxiety Reproductive Disorders: Cervical Cancer, Ovarian Cancer Comment: myocardial bridge, murmur, low blood pressure - Female History Hx Last Menstrual Period: HYSTERECTOMY Are you now?: No - Past Surgical History Past Surgical History: Yes Neuro Surgical History: No Pertinent History Cardiac History: Cardiac Catheterization Respiratory Surgery: No Pertinent History GI Surgical History: Cholecystectomy Genitourinary Surgical Hx: No Pertinent History Musculskeletal Surgical Hx: No Pertinent History Female Surgical History: Section, Hysterectomy Other Surgical History: ABLASION UTERINE. Mass removed form left ovary - Social History Smoking Status: Current every day smoker How long have you smoked: 17 Exposure to second hand smoke: Yes Alcohol: None Drug Use: none - Physical Exam Vital Signs: Vital Signs - 24 hr Temp Pulse Resp BP Pulse Ox 12/30/16 07:53 98.6 F 61 18 110/56 97 12/30/16 07:30 79 21 97 12/30/16 04:00 98.0 F 74 22 86/49 94 L 12/30/16 03:18 74 22 94 L 12/30/16 00:00 98 F 106 H 20 90/50 93 L 12/29/16 22:28 99 F 97 H 22 102/57 94 L 12/29/16 21:28 73 20 95 12/29/16 20:21 93/67 12/29/16 20:20 92 H 24 96 12/29/16 20:14 92 H 106/67 12/29/16 19:50 20 96 12/29/16 19:14 88 14 91 L 12/29/16 18:49 96 12/29/16 18:00 82 18 102/63 94 L 12/29/16 17:14 97 12/29/16 16:52 102 H 97 12/29/16 16:18 101 H 22 97 12/29/16 16:08 89 20 96 12/29/16 15:54 90 24 95 12/29/16 15:25 98.7 F 92 H 26 H 151/62 96 Oxygen-Last 24 hours O2 Percentage 3 Liters = 32% O2 Percentage 3 Liters = 32% O2 Percentage 2 Liters = 28% O2 Percentage 2 Liters = 28% O2 Percentage 2 Liters = 28% O2 Percentage 2 Liters = 28% O2 Percentage 2 Liters = 28% General Appearance: no apparent distress, alert Respiratory Exam: wheezing Cardiovascular Exam: regular rate/rhythm, normal heart sounds, normal peripheral pulses Gastrointestinal/Abdomen Exam: soft Extremity Exam: normal inspection, normal range of motion, pelvis stable Skin Exam: normal color, warm, dry, No rash Results - Labs Lab/Micro Results: Lab Results-Last 24 Hours 12/29/16 12/30/16 Range/Units 23:08 05:25 Sodium 142 (136-145) mEq/L Potassium 3.6 (3.5-5.1) mEq/L Chloride 107 (98-107) mEq/L Carbon Dioxide 25.5 (21-32) mEq/L Anion Gap 13.1 (5-15) MEQ/L BUN 14 (9-20) mg/dL Creatinine 0.95 (0.55-1.30) mg/dl Estimated GFR > 60 ML/MIN Glucose 194 H (70-110) MG/DL Calcium 8.7 (8.5-10.1) mg/dL Troponin I < 0.017 (0.000-0.056) ng/ml - Other Procedures and Tests Respiratory Therapy 12/29/16 21:59 Respiratory Nebulizer PRN 12/29/16 23:00 Respiratory Nebulizer Q4H Assessment/Plan (1) Acute asthma exacerbation Current Visit: Yes Status: Acute Qualifiers: Asthma severity: moderate persistent Qualified Code(s): J45.41 - Moderate persistent asthma with (acute) exacerbation Assessment & Plan: IV solu medrol, doxycycline and nebulizer treatments are ordered. (patient does not have a true allergy to prednisone, it causes her to swell) (2) Hypokalemia Current Visit: Yes Status: Acute Assessment & Plan: replaced Code(s): E87.6 - HYPOKALEMIA
[2016-12-30] MEDS: Pepcid 20 MG VIAL IV SCH ×2 (09:31→22:30)
[2016-12-30] MEDS: Vibramycin 100 MG PO SCH ×2 (09:33→22:30)
[2016-12-30] MEDS: solu-MEDROL 125 MG IV SCH ×3 (09:33→23:34)
[2016-12-30] MEDS: Klor Con 10 MEQ PO SCH ×2 (09:33→22:29)
[2016-12-30] MEDS: Ativan 0.5 MG PO PRN ×2 (09:38→22:37)
[2016-12-30] MEDS: NORCO 7.5/325 MG TAB PO PRN ×2 (09:38→16:38)
[2016-12-30] MEDS ORDERED: FLUZONE QUAD 2016-2017 SYRINGE 36MO-64YO IM ONE (10:00)
[2016-12-30] MEDS ORDERED: Lice Killing Shampoo TP ONE (10:00)
[2016-12-31] MEDS: DUONEB 0.5-3 MG/3 ml Neb IH SCH ×4 (04:29→14:46)
[2016-12-31 05:44] LABS: Mean Cell Volume 87.4 fl (78-100); Mean Corpuscular Hemoglobin 27.8 pg (26-32); Mean Platelet Volume 11.2 fl (6-9.5); Platelet Count 260 K/mm3 (150-450); Red Blood Count 4.61 M/mm3 (4.1-5.4); White Blood Count 21.4 K/mm3 (4.0-10.5)
[2016-12-31 06:25] LABS: ANION GAP 12.6 MEQ/L (5-15); BLOOD UREA NITROGEN 13 mg/dL (9-20); CHLORIDE 111 mEq/L (98-107); Carbon Dioxide 25.8 mEq/L (21-32); Glucose 170 MG/DL (70-110); Potassium 5.4 mEq/L (3.5-5.1); SODIUM 144 mEq/L (136-145)
[2016-12-31] MEDS: solu-MEDROL 125 MG IV SCH ×2 (06:36→12:39)
[2016-12-31 07:09] LABS: BAND 1 % (0.0-2.0); Total Cells Counted 100; Toxic Granulation 1+
[2016-12-31 07:10] LABS: ANISOCYTOSIS 1+; Platelet Estimate NORMAL (NORMAL)
--- NOTE | 2016-12-31 08:36 | PCM.DS ---
Discharge Summary Date of Admission: 12/29/16 20:40 Admitting Physician: BRIANDA BLAIR Primary Care Provider: SLADE SHEPPARD KENZIE Allergies Allergies levofloxacin [From Levaquin] Allergy (Mild, Verified 12/29/16 15:29) morphine Allergy (Mild, Verified 12/29/16 15:29) Penicillins Allergy (Mild, Verified 12/29/16 15:29) pantoprazole sodium [From Protonix] Allergy (Verified 12/29/16 15:29) prednisone Allergy (Verified 12/29/16 15:29) naproxen [From Naprosyn] Adverse Reaction (Mild, Verified 12/29/16 15:29) NOSE BLEED Hospital Summary - Hospital Course Hospital Course: patient off oxygen, potassium replaced. tolerating po intake and overall feeling better. admitted with recent upper respiratory infection, asthma exacerbation - Vitals & Intake/Output Vital Signs: Vital Signs Temperature 97.7 F 12/31/16 07:19 Pulse Rate 83 12/31/16 07:42 Respiratory Rate 18 12/31/16 07:42 Blood Pressure 90/52 12/31/16 07:19 O2 Sat by Pulse Oximetry 94 L 12/31/16 07:42 Oxygen-Last Documented O2 Percentage 3 Liters = 32% Intake & Output: Intake & Output 12/28/16 12/29/16 12/30/16 12/31/16 11:59 11:59 11:59 11:59 Intake Total 951 3453 Balance 951 3453 Weight 121.761 kg - Lab Result Diagrams: 12/31/16 04:50 12/31/16 04:50 Lab Results-Last 24 Hrs: Lab Results-Last 24 Hours 12/31/16 12/31/16 Range/Units 04:50 04:50 WBC 21.4 H (4.0-10.5) K/mm3 RBC 4.61 (4.1-5.4) M/mm3 Hgb 12.8 (12.0-16.0) gm/dl Hct 40.3 (35-47) % MCV 87.4 (78-100) fl MCH 27.8 (26-32) pg MCHC 31.8 L (32-36) g/dl RDW 16.0 H (11.5-14.0) % Plt Count 260 (150-450) K/mm3 MPV 11.2 H (6-9.5) fl Segmented Neutrophils 89 H (36.0-66.0) % Band Neutrophils 1 (0.0-2.0) % Lymphocytes (Manual) 8 L (24-44) % Monocytes (Manual) 2 (0.0-12.0) % Differential Comment ABNORMAL Toxic Granulation 1+ Platelet Estimate NORMAL (NORMAL) Anisocytosis 1+ Sodium 144 (136-145) mEq/L Potassium 5.4 H (3.5-5.1) mEq/L Chloride 111 H (98-107) mEq/L Carbon Dioxide 25.8 (21-32) mEq/L Anion Gap 12.6 (5-15) MEQ/L BUN 13 (9-20) mg/dL Creatinine 0.77 (0.55-1.30) mg/dl Estimated GFR > 60 ML/MIN Glucose 170 H (70-110) MG/DL Calcium 8.6 (8.5-10.1) mg/dL - Procedures and Test Procedures and Tests throughout Hospitalization: Therapy Orders & Screens 12/29/16 21:51 Respiratory Therapy Consult ROUTINE Comment: Reason For Exam: Diagnosis: Shortness of Breath 12/29/16 21:59 Respiratory Nebulizer PRN Comment: ALBUTEROL Q2PRN FOR SOB/WHEEZING Diagnosis: Shortness of Breath 12/29/16 22:46 RT Screen per Nursing Assess ONCE Comment: Protocol Order Physician Instructions: Greater than 3 points order RT Admission Screen Reason For Exam: Triggered on Admission Diagnosis: asthma Diagnosis: asthma Pneumonia: No Home O2: No Asthma: Yes CHF: No Home CPAP/BIPAP: Yes: doesnt use Home Nebs/MDI: Yes Total Points: 14 Smoking Cessation Education ONCE Comment: Diagnosis: asthma Smoking Status: Current every day smoker How long have you smoked: 17 Have you smoked in the past 12 months: Yes Approximately how many cigarettes per day: 10 Do you dip or chew tobacco: No If,Former Smoker,when did you quit: 2 DAYS 12/29/16 23:00 Respiratory Nebulizer Q4H Comment: DUONEB Q4 HOURS Diagnosis: Shortness of Breath 12/30/16 20:55 Flutter Therapy PRN Comment: PER SELF-DIRECTED CARE Diagnosis: asthma Discharge Exam General Appearance: no apparent distress, alert Respiratory Exam: normal breath sounds, lungs clear, wheezing (minimal forced expiratory wheezing present), No respiratory distress Cardiovascular Exam: regular rate/rhythm, normal heart sounds Extremity Exam: normal inspection, normal range of motion Final Diagnosis/Problem List - Final Discharge Diagnosis/Problem (1) Acute asthma exacerbation Current Visit: Yes Status: Acute (2) Hypokalemia Current Visit: Yes Status: Acute - Discharge Disposition: Home, Self-Care Condition: Good Prescriptions: New Methylprednisolone [Medrol Dose Pack] 4 mg PO UD #1 pack Albuterol 2.5 mg/3 ml Neb [Proventil 2.5 mg/3 ml Neb] 2.5 mg IH Q4- 6HPRN PRN #100 neb PRN Reason: Shortness Of Breath/Wheezing Doxycycline Hyclate 100 mg [Vibramycin 100 MG] 100 mg PO BID #14 tab Continue Albuterol Sulfate [Albuterol Sulfate Hfa] 2 puff IH Q4-6HPRN PRN #1 hfa.aer.ad PRN Reason: cough or wheeze Lorazepam 0.5 mg [Ativan 0.5 MG] 0.5 mg PO UD PRN PRN Reason: Anxiety Hydrocodone Bit/Acetaminophen [[place] 7.5-325 Tablet] 1 each PO Q8H PRN PRN PRN Reason: Pain Follow up with: SLADE SHEPPARD MD [Primary Care Provider] -
[2016-12-31] MEDS: Ativan 0.5 MG PO PRN (09:08)
[2016-12-31] MEDS: Pepcid 20 MG VIAL IV SCH (09:09)
[2016-12-31] MEDS: Vibramycin 100 MG PO SCH (09:09)
[2016-12-31] MEDS: NORCO 7.5/325 MG TAB PO PRN (09:09)
[2016-12-31] MEDS: Klor Con 10 MEQ PO SCH ×2 (09:19)
[2016-12-31 12:15] VITALS: BP 92/57
[2016-12-31 14:59] VITALS: PULSE 83; O2SAT 94
== END 2016-12-31 15:45 | disposition home or self-care (01) ==
LOC: ED 15:24 → MED SURG 20:40
PROVIDERS: ADMIT Family Medicine; ATTEND Family Medicine
DX: J45.901 Unspecified asthma with (acute) exacerbation (principal); E87.6 Hypokalemia; M79.7 Fibromyalgia; M19.90 Unspecified osteoarthritis, unspecified site; K50.90 Crohn's disease, unspecified, without complications; F41.9 Anxiety disorder, unspecified; Z85.41 Personal history of malignant neoplasm of cervix uteri; Z85.43 Personal history of malignant neoplasm of ovary
CPT/HCPCS: 36415; 71010; 80048; 80053; 83735; 84132; 84484; 85025; 90686; 93005; 93041; 93268; 94640; 94760; 96360; 96361; 96365; 96372; 99285; G0008; G0378; J1100; J2930; J3410; J3475; A9270-GY

== ENCOUNTER 2017-10-15 15:48 | Emergency (ER) | payer OTHER, SELFPAY ==
[2017-10-15] MEDS ORDERED: TORAdol 30 mg Injection IM ONE (16:10)
--- NOTE | 2017-10-15 16:14 | ERPHSYRPT ---
- History of Present Illness Time Seen by Provider: 10/15/17 16:04 Source: patient Patient Subjective Stated Complaint: PT REPORTS PLAYING AROUND WITH HER BOYFRIEND YESTERDAY WHEN HE PULLED HER ARM UP WHILE HAVING HER PINNED DOWN- REPORTS PAIN RADIATING TO HER YGNE-APP-SPC-STATES THAT TODAY HER FINGERS HAVE BEEN NUMB Triage Nursing Assessment: PT PALE WARM ET DRY-NO OBVIOUS DEFORMITY NOTED- RADIAL PULSE PRESENT ET STRONG-CAP REFILL 3 SECONDS Physician History: CC: left shoulder pain Hx: 37 y/o patient of Dr Sheppard was wrestling yesterday and left arm pulled back and she felt a pop in back of left shoulder. She has moderate pain in left shoulder worse with movement. No N/T/W. No other injuries. Prior hysterectomy. Occurred: yesterday Severity of Pain-Max: moderate Severity of Pain-Current: moderate Extremities Pain Location: shoulder: left Allergies/Adverse Reactions: levofloxacin [From Levaquin] Allergy (Mild, Verified 10/15/17 15:59) morphine Allergy (Mild, Verified 10/15/17 15:59) Penicillins Allergy (Mild, Verified 10/15/17 15:59) pantoprazole sodium [From Protonix] Allergy (Verified 10/15/17 15:59) prednisone Allergy (Verified 10/15/17 15:59) naproxen [From Naprosyn] Adverse Reaction (Mild, Verified 10/15/17 15:59) NOSE BLEED Home Medications: Gabapentin [Neurontin] 300 mg PO BID 10/15/17 [History] Omeprazole 20 MG [Prilosec 20 mg] 20 mg PO DAILY 10/15/17 [History] Topiramate 25 mg [Topamax 25 MG] 25 mg PO BID 10/15/17 [History] Hx Tetanus, Diphtheria Vaccination/Date Given: Yes Hx Influenza Vaccination/Date Given: No Hx Pneumococcal Vaccination/Date Given: No Immunizations Up to Date: Yes - Review of Systems Constitutional: No Fever, No Chills Respiratory: No Dyspnea Abdominal/Gastrointestinal: No Nausea, No Vomiting Musculoskeletal: Joint Pain (left shoulder), No Back Pain, No Neck Pain Skin: No Rash Neurological: No Focal Weakness, No Headache, No Parasthesia - Past Medical History Pertinent Past Medical History: Yes Neurological History: Migraines ENT History: No Pertinent History Cardiac History: Arrhythmia, Other Respiratory History: Asthma Endocrine Medical History: No Pertinent History Musculoskeletal History: Fibromyalgia, Osteoarthritis GI Medical History: Crohns Disease History: No Pertinent History Psycho-Social History: Anxiety Female Reproductive Disorders: Cervical Cancer, Ovarian Cancer Other Medical History: myocardial bridge, murmur, low blood pressure - Past Surgical History Past Surgical History: Yes Neuro Surgical History: No Pertinent History Cardiac: Cardiac Catheterization Respiratory: No Pertinent History Gastrointestinal: Cholecystectomy Genitourinary: No Pertinent History Musculoskeletal: No Pertinent History Female Surgical History: Section, Hysterectomy Other Surgical History: Ablation uterine. Mass removed form left ovary. Hysterectomy - Social History How long have you smoked: 17 Exposure to second hand smoke: Yes Drug Use: none Patient Lives Alone: No - Female History Hx Now: No - Nursing Vital Signs Nursing Vital Signs: Initial Vital Signs Temperature 97.9 F 10/15/17 15:59 Pulse Rate 82 10/15/17 15:59 Respiratory Rate 18 10/15/17 15:59 Blood Pressure 110/74 10/15/17 15:59 O2 Sat by Pulse Oximetry 99 10/15/17 15:59 Pain Scale Pain Intensity 8 - Physical Exam General Appearance: alert Eyes, Ears, Nose, Throat Exam: moist mucous membranes Neck Exam: normal inspection, non-tender, supple Cardiovascular/Respiratory Exam: chest non-tender, normal breath sounds, regular rate/rhythm Elbow/Forearm Exam: normal inspection, non-tender Wrist Exam: normal inspection, non-tender Hand Exam: normal inspection, non-tender Mental Status Exam: alert, oriented x 3, cooperative Skin Exam: warm, dry SpO2 Interpretation: normal SpO2: 99 Oxygen Delivery: Room Air Comments: left shoulder tender superior and posterior. Slow ROM to touch the right shoulder with left hand. Pulse and sensation intact. - Course Nursing assessment & vital signs reviewed: Yes - Radiology Exams shoulder X-ray Interpretation: Interpreted by me, Negative, No Fracture, Nml Alignment Ordered Tests: Active Orders 24 hr Category Date Time Status Sling Application STAT Care 10/15/17 16:10 Active SHOULDER Stat Exams 10/15/17 16:10 Taken Medication Summary Discontinued Medications Generic Name Dose Route Start Last Admin Trade Name Freq PRN Reason Stop Dose Admin Ketorolac Tromethamine 60 mg 10/15/17 16:10 10/15/17 16:28 Toradol 30 Mg Injection IM 10/15/17 16:11 60 mg STAT ONE Administration Ketorolac Tromethamine Confirm 10/15/17 16:16 Toradol 30 Mg Injection Administered 10/15/17 16:17 Dose 60 mg .ROUTE .STK-MED ONE - Progress Progress Note: 10/15/17 16:44 Sling applied. She is allergic to motrin and naproxen so will use APAP for pain. Advised simple ROM exercises and follow up with Dr Sheppard. Counseled pt/family regarding: diagnosis, need for follow-up, rad results - Departure Time of Disposition: 16:46 Departure Disposition: Home Clinical Impression: Sprain of left shoulder Condition: Stable Critical Care Time: No Referrals: SLADE SHEPPARD MD [Primary Care Provider] - Instructions: Shoulder Sprain, Use a Sling Additional Instructions: Use tylenol as directed for discomfort. Sling for a few days with simple range of motion exercises. Follow up next week with Dr Sheppard.
[2017-10-15] MEDS ORDERED: TORAdol 30 mg Injection ONE (16:16)
[2017-10-15 17:04] VITALS: BP 100/62; PULSE 80; O2SAT 96
--- NOTE | 2017-10-16 08:14 | XRAY ---
Indication: Pain and limited range of motion following injury. Comparison: None 3 views of the left shoulder demonstrates minimal AC degenerative arthropathy. No other bony, articular, or soft tissue abnormalities.
== END 2017-10-15 16:56 | disposition home or self-care (01) ==
LOC: ED 15:48
DX: S43.402A Unspecified sprain of left shoulder joint, initial encounter (principal); M25.512 Pain in left shoulder; X50.0XXA Overexertion from strenuous movement or load, initial encounter; Y93.83 Activity, rough housing and horseplay
CPT/HCPCS: 73030; 96372; 99284; J1885

== ENCOUNTER 2017-12-14 12:50 | Emergency (ER) | payer OTHER ==
[2017-12-14] MEDS ORDERED: Zofran 4 MG/2 ML VIAL IV ONE (13:19)
[2017-12-14] MEDS ORDERED: SUBLIMAZE 100 MCG/2 ML IV ONE (13:19)
[2017-12-14] MEDS ORDERED: Pepcid 20 MG VIAL IV ONE ×2 (13:19→14:02)
--- NOTE | 2017-12-14 13:23 | ERPHSYRPT ---
- History of Present Illness Time Seen by Provider: 12/14/17 13:15 Historian: patient, family (soon to be ) Patient Subjective Stated Complaint: upper abdominal pain Triage Nursing Assessment: pt to er c/o upper abdominal pain after eating cookie and soup yesterday, progerssively worse, radiates to left ribs and center of back, nausea but no vomiting, no bowel difficulties Physician History: CC: epigastric abd pain Hx: 37 y/o patient of Dr Sheppard with epigastric abd pain radiating to her back since yesterday, sharp and severe. No vomiting. She has nausea. No diarrhea. No fever or chills. She had prior cholecystectomy and hysterectomy. Timing/Duration: yesterday Allergies/Adverse Reactions: levofloxacin [From Levaquin] Allergy (Mild, Verified 12/14/17 13:06) morphine Allergy (Mild, Verified 12/14/17 13:06) Penicillins Allergy (Mild, Verified 12/14/17 13:06) pantoprazole sodium [From Protonix] Allergy (Verified 12/14/17 13:06) prednisone Allergy (Verified 12/14/17 13:06) naproxen [From Naprosyn] Adverse Reaction (Mild, Verified 12/14/17 13:06) NOSE BLEED Home Medications: Gabapentin [Neurontin] 300 mg PO BID 10/15/17 [History] Omeprazole 20 MG [Prilosec 20 mg] 20 mg PO DAILY 10/15/17 [History] Hx Tetanus, Diphtheria Vaccination/Date Given: No Hx Influenza Vaccination/Date Given: No Hx Pneumococcal Vaccination/Date Given: No Immunizations Up to Date: No - Review of Systems Constitutional: No Fever, No Chills Eyes: No Symptoms Ears, Nose, & Throat: No Symptoms Respiratory: No Symptoms Cardiac: No Chest Pain Abdominal/Gastrointestinal: Abdominal Pain, Nausea, No Vomiting, No Diarrhea Genitourinary Symptoms: No Dysuria Musculoskeletal: Back Pain Skin: No Rash Neurological: No Headache All Other Systems: Reviewed and Negative - Past Medical History Pertinent Past Medical History: Yes Neurological History: Migraines ENT History: Macular Degeneration Cardiac History: Other Respiratory History: COPD Endocrine Medical History: No Pertinent History Musculoskeletal History: Osteoarthritis GI Medical History: Crohns Disease History: No Pertinent History Psycho-Social History: Anxiety, Depression, Other Female Reproductive Disorders: Cervical Cancer, Ovarian Cancer Other Medical History: PTSD per patient, fibromyalgia - Past Surgical History Past Surgical History: Yes Neuro Surgical History: No Pertinent History Cardiac: No Pertinent History Respiratory: No Pertinent History Gastrointestinal: Cholecystectomy Genitourinary: No Pertinent History Musculoskeletal: No Pertinent History Female Surgical History: Hysterectomy Other Surgical History: Ablation uterine. Mass removed form left ovary. Hysterectomy - Social History Smoking Status: Current every day smoker How long have you smoked: 26 years Exposure to second hand smoke: Yes Drug Use: none Patient Lives Alone: No - Female History Hx Now: (hysterectomy) - Nursing Vital Signs Nursing Vital Signs: Initial Vital Signs Temperature 97.5 F 12/14/17 12:58 Pulse Rate 81 12/14/17 12:58 Respiratory Rate 20 12/14/17 12:58 Blood Pressure 115/77 12/14/17 12:58 O2 Sat by Pulse Oximetry 99 12/14/17 12:58 Pain Scale Pain Intensity 0 - Physical Exam General Appearance: alert Eye Exam: PERRL/EOMI Ears, Nose, Throat Exam: normal ENT inspection, moist mucous membranes Neck Exam: normal inspection, non-tender, supple Respiratory Exam: normal breath sounds, lungs clear Cardiovascular Exam: regular rate/rhythm Gastrointestinal/Abdomen Exam: soft, tenderness (epigastrum with guarding) Back Exam: normal inspection, normal range of motion Extremity Exam: normal inspection, normal range of motion, No calf tenderness, No pedal edema Neurologic Exam: alert, oriented x 3, cooperative, sensation nml, No motor deficits Skin Exam: warm, dry, No rash SpO2 Interpretation: normal SpO2: 99 Oxygen Delivery: Room Air - Course Nursing assessment & vital signs reviewed: Yes EKG Interpreted by Me: RATE (57), Sinus Ish, NORMAL AXIS, NORMAL INTERVALS ( QTc 409), NORMAL QRS, NORMAL ST-T - CT Exams abd/pelvis CT Interpretation: Tele-radiologist Report (no acute, stable hiatal hernia) Ordered Tests: Active Orders 24 hr Category Date Time Status EKG-ER Only STAT Care 12/14/17 13:22 Active IV Insertion STAT Care 12/14/17 13:19 Active ABDOMEN AND PELVIS W CONTRAST [CT] Stat Exams 12/14/17 13:19 Taken CBC W DIFF Stat Lab 12/14/17 13:30 Completed CMP Stat Lab 12/14/17 13:30 Completed LIPASE Stat Lab 12/14/17 13:30 Completed Lactic Acid Stat Lab 12/14/17 13:19 Completed Medication Summary Discontinued Medications Generic Name Dose Route Start Last Admin Trade Name Viridiana PRN Reason Stop Dose Admin Famotidine 20 mg 12/14/17 13:19 12/14/17 14:06 Pepcid 20 Mg Vial IV 12/14/17 13:20 20 mg STAT ONE Administration Famotidine Confirm 12/14/17 14:02 Pepcid 20 Mg Vial Administered 12/14/17 14:03 Dose 20 mg IV .STK-MED ONE Fentanyl Citrate 50 mcg 12/14/17 13:19 12/14/17 14:05 Sublimaze 100 Mcg/2 Ml IV 12/14/17 13:20 50 mcg STAT ONE Administration Fentanyl Citrate Confirm 12/14/17 14:04 Sublimaze 100 Mcg/2 Ml Administered 12/14/17 14:05 Dose 100 mcg .ROUTE .STK-MED ONE Ondansetron HCl 4 mg 12/14/17 13:19 12/14/17 14:06 Zofran 4 Mg/2 Ml Vial IV 12/14/17 13:20 4 mg STAT ONE Administration Ondansetron HCl Confirm 12/14/17 14:02 Zofran 4 Mg/2 Ml Vial Administered 12/14/17 14:03 Dose 4 mg .ROUTE .STK-MED ONE Lab/Rad Data: Laboratory Result Diagrams 12/14/17 13:30 12/14/17 13:30 Laboratory Results 12/14/17 12/14/17 12/14/17 Range/Units 13:30 13:30 13:19 WBC 8.6 (4.0-10.5) K/mm3 RBC 5.10 (4.1-5.4) M/mm3 Hgb 14.5 (12.0-16.0) gm/dl Hct 44.2 (35-47) % MCV 86.7 (78-100) fl MCH 28.4 (26-32) pg MCHC 32.8 (32-36) g/dl RDW 13.6 (11.5-14.0) % Plt Count 277 (150-450) K/mm3 MPV 10.2 H (6-9.5) fl Gran % 59.7 (36.0-66.0) % Lymphocytes % 30.8 (24.0-44.0) % Monocytes % 7.8 (0.0-12.0) % Eosinophils % 1.5 (0.00-5.0) % Basophils % 0.2 (0.0-0.4) % Basophils # 0.02 (0-0.4) Sodium 141 (137-145) mmol/L Potassium 3.9 (3.5-5.1) mmol/L Chloride 103 (98-107) mEq/L Carbon Dioxide 30 (22-30) mmol/L Anion Gap 11.9 MEQ/L BUN 11 (7-17) mg/dl Creatinine 0.73 (0.52-1.04) mg/dl Estimated GFR > 60 ML/MIN Glucose 91 (74-106) mg/dL Lactic Acid 1.0 (0.4-2.0) Calcium 9.8 (8.4-10.2) mg/dl Total Bilirubin 0.60 (0.2-1.3) mg/d? AST 22 (14-36) U/L ALT 23 (0-35) U/L Alkaline Phosphatase 109 (38-126) U/L Serum Total Protein 6.7 (6.3-8.2) mg/dl Albumin 3.7 (3.5-5.0) g/dl Lipase 42 (23-300) U/L - Progress Progress Note: 12/14/17 13:[address] to evaluate for pancreatitis. 12/14/17 14:58 She ambulated to BR ward. She is on prilosec. Will release with bland diet to follow up with Dr Sheppard tomorrow at 3:30. Counseled pt/family regarding: lab results, diagnosis, need for follow-up, rad results - Departure Time of Disposition: 15:00 Departure Disposition: Home Clinical Impression: Epigastric abdominal pain Condition: Stable Critical Care Time: No Referrals: SLADE SHEPPARD MD [Primary Care Provider] - Instructions: Acute Abdomen (Belly Pain), Adult (DC) Additional Instructions: ABDOMINAL PAIN 1. There are several different causes for abdominal pain, some of which may not be able to be identified on initial examination. 2. The important thing to remember is that bodily functions can change in a short period of time. If you notice any of the following symptoms, return to the emergency department or consult your doctor immediately: A. Worsening pain or no improvement in the next 12 hours. B. Increasing, severe abdominal pain C. Blood in stool D. Black stools E. Persistent vomiting F. Fever or chills or other symptoms Continue prilosec twice a day. [place] diet. See Dr Sheppard tomorrow at 3:30 PM. Return for problems or concerns. No driving today.
[2017-12-14] MEDS ORDERED: Zofran 4 MG/2 ML VIAL ONE (14:02)
[2017-12-14] MEDS ORDERED: SUBLIMAZE 100 MCG/2 ML ONE (14:04)
[2017-12-14 14:22] LABS: ALBUMIN 3.7 g/dl (3.5-5.0); ALKALINE PHOSPHATASE 109 U/L (38-126); ANION GAP 11.9 MEQ/L; BASOPHIL % 0.2 % (0.0-0.4); BLOOD UREA NITROGEN 11 mg/dl (7-17); Basophil (Absolute #) 0.02 (0-0.4); CHLORIDE 103 mEq/L (98-107); Calcium 9.8 mg/dl (8.4-10.2); Carbon Dioxide 30 mmol/L (22-30); Creatinine 1 0.73 mg/dl (0.52-1.04); Eosinophil % 1.5 % (0.00-5.0); Eosinophil (Absolute #) 0.13 (0-0.5); Glucose 91 mg/dL (74-106); Granulocyte Absolute (ANC) 5.16 (1.4-6.9); Granulocytes % 59.7 % (36.0-66.0); Hematocrit 44.2 % (35-47); Hemoglobin 14.5 gm/dl (12.0-16.0); LIPASE 42 U/L (23-300); Lymphocyte (Absolute #) 2.66 (1.0-4.6); Lymphocytes % 30.8 % (24.0-44.0); Mean Cell Volume 86.7 fl (78-100); Mean Corpuscular Hemoglobin 28.4 pg (26-32); Mean Corpuscular Hgb Concent. 32.8 g/dl (32-36); Mean Platelet Volume 10.2 fl (6-9.5); Monocyte (Absolute #) 0.67 (0.0-1.3); Monocytes % 7.8 % (0.0-12.0); Platelet Count 277 K/mm3 (150-450); Potassium 3.9 mmol/L (3.5-5.1); Red Cell Distribution Width 13.6 % (11.5-14.0); SGOT/AST 22 U/L (14-36); SGPT/ALT 23 U/L (0-35); SODIUM 141 mmol/L (137-145); Total Protein 6.7 mg/dl (6.3-8.2); White Blood Count 8.6 K/mm3 (4.0-10.5)
--- NOTE | 2017-12-14 15:00 | XRAY ---
Indication: Abdominal/pelvic pain. History ovarian cancer. Multiple contiguous axial images obtained through the abdomen and pelvis using 80 cc Isovue 370 contrast only. Comparison: August 05, 2015. Lung bases demonstrates stable right base calcified granuloma. No infiltrate or effusion. Heart is not enlarged. Stable small hiatal hernia. Noncontrasted stomach and bowel loops appear nonobstructed. Normal appendix. No free fluid/air. Again previous cholecystectomy and hysterectomy. Remaining liver, pancreas, spleen, adrenal glands, kidneys, ureters, bladder, and aorta appear normal in CT appearance and attenuation. No pathologic retroperitoneal lymphadenopathy. Osseous structures intact with stable bilateral L5 spondylolysis without spondylolisthesis. Impression: 1. Stable small hiatal hernia. 2. No new or acute intra-abdominal/pelvic abnormalities. 3. Stable L5 spondylolysis without spondylolisthesis. CT DI 34.64
[2017-12-14 15:19] VITALS: BP 112/78; PULSE 66; O2SAT 93
== END 2017-12-14 15:21 | disposition home or self-care (01) ==
LOC: ED 12:50
DX: R10.13 Epigastric pain (principal); F17.200 Nicotine dependence, unspecified, uncomplicated; M54.9 Dorsalgia, unspecified; G43.909 Migraine, unspecified, not intractable, without status migrainosus; J44.9 Chronic obstructive pulmonary disease, unspecified; M19.90 Unspecified osteoarthritis, unspecified site; K50.90 Crohn's disease, unspecified, without complications; F41.8 Other specified anxiety disorders; Z85.43 Personal history of malignant neoplasm of ovary; Z85.41 Personal history of malignant neoplasm of cervix uteri; M79.7 Fibromyalgia
CPT/HCPCS: 36000; 36415; 74177; 80053; 83605; 83690; 85025; 93005; 96374; 96375; 99283; 99285; J2405; J3010

== ENCOUNTER 2017-12-22 06:02 | Day surgery (SDC) | payer OTHER ==
[2017-12-22] MEDS ORDERED: DIPRIVAN 200 MG/20 ML IV ONE (06:03)
[2017-12-22] MEDS: Lactated Ringers 1,000 ML IV SCH ×2 (06:23→06:58)
[2017-12-22 09:22] VITALS: O2SAT 98
[2017-12-22 09:25] VITALS: BP 106/55; PULSE 66
--- NOTE | 2017-12-22 12:12 | OP ---
SURGERY DATE/TIME: 12/22/2017 0749 PREOPERATIVE DIAGNOSIS: Epigastric abdominal pain. POSTOPERATIVE DIAGNOSIS: Distal esophagitis. PROCEDURE: EGD. SURGEON: Teja Rizo M.D. ANESTHESIA: MAC by Ousmane Harmon CRNA. ESTIMATED BLOOD LOSS: Minimal. SPECIMENS: Two cold forceps biopsies from the distal esophagus. DESCRIPTION OF PROCEDURE: After informed written consent was obtained, the patient was taken to the endoscopy suite. She underwent monitored anesthesia and a bite block was inserted. The endoscope was inserted into the posterior oropharynx and under direct visualization the esophagus was traversed. The gastric mucosa had a normal rugated appearance upon entry. There were no obvious lesions in the gastric antrum. The pylorus was traversed and the first and second portions of the duodenum appeared normal. Upon withdrawal the gastric mucosa all appeared normal. The gastroesophageal junction and distal esophagus showed moderate inflammatory changes with esophagitis present. Two cold forceps biopsies were taken from this area and sent for pathology. The remainder of the exam was unremarkable. There was a small hiatal hernia also appreciable upon examination. The scope was removed and the patient was transferred to the recovery room in excellent condition. I have advised that she continue Carafate and omeprazole at this time, avoid all NSAID's and follow up in a week for pathology results.
== END 2017-12-22 09:37 | disposition home or self-care (01) ==
LOC: SDC 06:02
PROVIDERS: ATTEND Family Medicine
PROC: 0DB38ZX Excision of Lower Esophagus, Via Natural or Artificial Opening Endoscopic, Diagnostic (ICD-10-PCS; principal; 2017-12-22)
DX: K20.9 Esophagitis, unspecified (principal)
CPT/HCPCS: J2704

== ENCOUNTER 2018-01-04 00:43 | Emergency (ER) | payer OTHER ==
--- NOTE | 2018-01-04 01:16 | ERPHSYRPT ---
- History of Present Illness Time Seen by Provider: 01/04/18 01:10 Source: patient Exam Limitations: no limitations Patient Subjective Stated Complaint: abd pain with urine leaking x 2 days.. vaginal paimn with no bleeding Triage Nursing Assessment: alert states pain low abdomen with leaking of urine.. has had vaginal pain with no bleeding.. pain in back on both sides. Physician History: The patient is a 37-year-old female with her complaining of urinary discomfort and leaking urine suddenly for at least 2 days. She describes some vaginal pain with the leakage of urine. She's had a fever. Her past medical history significant for a hysterectomy and frequent UTIs. Timing/Duration: day(s) (2) Severity: moderate Modifying Factors: Improves With: movement Associated Symptoms: abdominal pain Allergies/Adverse Reactions: coconut Allergy (Intermediate, Verified 12/22/17 06:48) Tightness of Throat levofloxacin [From Levaquin] Allergy (Mild, Verified 12/22/17 06:48) Hives morphine Allergy (Mild, Verified 12/22/17 06:48) Tightness in Chest "stops breathing" Penicillins Allergy (Mild, Verified 12/22/17 06:48) Tightness in Chest "stops me breathing" pantoprazole sodium [From Protonix] Allergy (Verified 12/22/17 06:48) Stomach Cramps prednisone Allergy (Verified 12/22/17 06:48) "can't have it because my doctor said i can't" naproxen [From Naprosyn] Adverse Reaction (Mild, Verified 12/22/17 06:48) NOSE BLEED Home Medications: Gabapentin [Neurontin] 300 mg PO TID 10/15/17 [History] Omeprazole 20 MG [Prilosec 20 mg] 40 mg PO DAILY 10/15/17 [History] Duloxetine HCl 30 mg [Cymbalta 30 MG Capsule] 30 mg PO DAILY 12/20/17 [ History] Hydroxyzine HCl 25 mg [Atarax 25 mg] 25 mg PO TID 12/20/17 [History] Multivitamin [Multivitamins] 1 each PO DAILY 12/20/17 [History] Sucralfate 1 gm [Carafate 1 GM] 1 gm PO QID 12/20/17 [History] Hx Tetanus, Diphtheria Vaccination/Date Given: No Hx Influenza Vaccination/Date Given: Yes Hx Pneumococcal Vaccination/Date Given: No - Review of Systems Constitutional: Fever Eyes: No Symptoms Ears, Nose, & Throat: No Symptoms Respiratory: No Cough, No Dyspnea Cardiac: No Chest Pain, No Edema, No Syncope Abdominal/Gastrointestinal: Abdominal Pain Genitourinary Symptoms: Dysuria, Incontinence, No Vaginal Bleeding Musculoskeletal: No Back Pain, No Neck Pain Skin: No Rash Neurological: No Dizziness, No Focal Weakness, No Sensory Changes Psychological: No Symptoms Endocrine: No Symptoms Hematologic/Lymphatic: No Symptoms Immunological/Allergic: No Symptoms All Other Systems: Reviewed and Negative - Past Medical History Pertinent Past Medical History: Yes Neurological History: Migraines ENT History: Macular Degeneration Cardiac History: Other Respiratory History: COPD Endocrine Medical History: No Pertinent History, Hyperthyroidism, Hypothyroidism Musculoskeletal History: Osteoarthritis GI Medical History: Crohns Disease History: No Pertinent History Psycho-Social History: Anxiety, Depression, Other Female Reproductive Disorders: Cervical Cancer, Ovarian Cancer Other Medical History: PTSD per patient, fibromyalgia - Past Surgical History Past Surgical History: Yes Neuro Surgical History: No Pertinent History Cardiac: No Pertinent History Respiratory: No Pertinent History Gastrointestinal: Cholecystectomy Genitourinary: No Pertinent History Musculoskeletal: No Pertinent History Female Surgical History: Hysterectomy, Section Other Surgical History: Ablation uterine. Mass removed form left ovary. Hysterectomy. x two - Social History Smoking Status: Current every day smoker How long have you smoked: 20 years Exposure to second hand smoke: No Drug Use: marijuana Patient Lives Alone: No - Female History Hx Now: No - Nursing Vital Signs Nursing Vital Signs: Initial Vital Signs Temperature 97.6 F 01/04/18 00:49 Pulse Rate 89 01/04/18 00:49 Respiratory Rate 18 01/04/18 00:49 Blood Pressure 121/99 01/04/18 00:49 O2 Sat by Pulse Oximetry 98 01/04/18 00:49 Pain Scale Pain Intensity 9 - Physical Exam General Appearance: no apparent distress, alert Eye Exam: PERRL/EOMI, eyes nml inspection Ears, Nose, Throat Exam: normal ENT inspection, TMs normal, pharynx normal, moist mucous membranes Neck Exam: normal inspection, non-tender, supple, full range of motion Respiratory Exam: normal breath sounds, lungs clear, No respiratory distress Cardiovascular Exam: regular rate/rhythm, normal heart sounds, normal peripheral pulses Gastrointestinal/Abdomen Exam: tenderness (suprapubic) Pelvic Exam: not done Rectal Exam: not done Back Exam: normal inspection, normal range of motion, No CVA tenderness, No vertebral tenderness Extremity Exam: normal inspection, normal range of motion, pelvis stable Neurologic Exam: alert, oriented x 3, cooperative, normal mood/affect, nml cerebellar function, nml station & gait, sensation nml, No motor deficits Skin Exam: normal color, warm, dry, No rash Lymphatic Exam: No adenopathy SpO2 Interpretation: normal SpO2: 98 Oxygen Delivery: Room Air Ordered Tests: Active Orders 24 hr Category Date Time Status CULTURE,URINE Stat Lab 01/04/18 01:28 Received UA W/ MICROSCOPIC Stat Lab 01/04/18 01:28 Completed Lab/Rad Data: Laboratory Results 01/04/18 Range/Units 01:28 Ur Collection Type CLEAN CATCH Urine Color ORANGE (YELLOW) Urine Appearance CLOUDY (CLEAR) Urine pH 5.0 (5-6) Ur Specific [place] 1.020 (1.005-1.025) Urine Protein NEGATIVE (Negative) Urine Ketones NEGATIVE (NEGATIVE) Urine Blood 50 (0-5) Mateo/ul Urine Nitrite NEGATIVE (NEGATIVE) Urine Bilirubin NEGATIVE (NEGATIVE) Urine Urobilinogen NORMAL (0-1) mg/dL Ur Leukocyte Esterase 1+ (NEGATIVE) Urine Microscopic RBC 2-5 (0-2) /HPF Urine Microscopic WBC 10-15 (0-5) /HPF Ur Epithelial Cells FEW (FEW) /HPF Urine Bacteria FEW (NEGATIVE) /HPF Urine Culture Reflexed YES (NO) Urine Glucose NEGATIVE (NEGATIVE) mg/dL Specimen Received [id number] - Progress Progress: improved Counseled pt/family regarding: lab results, diagnosis - Departure Time of Disposition: 01:51 Departure Disposition: Home Clinical Impression: UTI (urinary tract infection) Condition: Stable Critical Care Time: No Referrals: SLADE SHEPPARD MD [Primary Care Provider] - Additional Instructions: You have a UTI. You were given Rocephin 1 g by IV in the ER. Take Keflex 500 mg 4 times a day for 7 days. Take Azo as needed for discomfort. Follow-up in 2 -3 days with your primary care doctor. Prescriptions: Cephalexin 500 mg PO QID #28 capsule
[2018-01-04 01:38] LABS: Appearance CLOUDY (CLEAR)
[2018-01-04 01:39] LABS: Bilirubin NEGATIVE (NEGATIVE); Blood 50 Ery/ul (0-5); Glucose NEGATIVE (NEGATIVE); Ketones NEGATIVE (NEGATIVE); Leukocyte Esterase 1+ (NEGATIVE); Nitrite NEGATIVE (NEGATIVE); Protein,Urine Dip NEGATIVE (Negative); Urobilinogen NORMAL mg/dL (0-1)
[2018-01-04 01:40] LABS: Epithelial Cells FEW /HPF (FEW)
[2018-01-04 01:41] LABS: Bacteria FEW /HPF (NEGATIVE)
[2018-01-04 01:46] VITALS: BP 102/67; PULSE 79
[2018-01-04] MEDS ORDERED: Rocephin 1000 MG INJ IM ONE (01:46)
[2018-01-04] MEDS ORDERED: Rocephin 1000 MG INJ ONE (01:47)
[2018-01-04] MEDS ORDERED: ROCEPHIN 1 Gm-D5w 50 ml Bag** 1 G/50 ML IVPB IV ONE (01:48)
[2018-01-04] MEDS ORDERED: ROCEPHIN 1 Gm-D5w 50 ml Bag** 1 G/50 ML IVPB IV STA (01:48)
[2018-01-04 01:52] VITALS: O2SAT 98
== END 2018-01-04 02:09 | disposition home or self-care (01) ==
LOC: ED 00:43
DX: N39.0 Urinary tract infection, site not specified (principal); R10.9 Unspecified abdominal pain; Z79.899 Other long term (current) drug therapy
CPT/HCPCS: 81000; 87077; 87086; 87186; 96365; 99284; J0696

== ENCOUNTER 2018-03-23 21:04 | Emergency (ER) | payer OTHER ==
[2018-03-23 21:54] VITALS: BP 121/83; PULSE 76; O2SAT 98
[2018-03-23] MEDS ORDERED: TORAdol 30 mg Injection IM ONE (21:55)
[2018-03-23] MEDS ORDERED: ZOFRAN ODT 4 MG PO ONE (21:56)
[2018-03-23] MEDS ORDERED: ANTIVERT 25 MG PO ONE (21:57)
[2018-03-23] MEDS ORDERED: TORAdol 30 mg Injection ONE (22:00)
[2018-03-23] MEDS ORDERED: ANTIVERT 25 MG ONE (22:00)
[2018-03-23] MEDS ORDERED: ZOFRAN ODT 4 MG ONE (22:01)
--- NOTE | 2018-03-23 22:03 | ERPHSYRPT ---
- History of Present Illness Time Seen by Provider: 03/23/18 21:50 Source: patient Exam Limitations: no limitations Patient Subjective Stated Complaint: Pt arrives to ER with c/o right earache started 2 days ago and became worse today and pain has spread to face. States has ringing, vertigo and clear drainage. Triage Nursing Assessment: see above Physician History: 37 y/o female comes to the ER with complaints of right ear pain, vertigo and nausea for the past 2 days. Pt describes the pain as sharp, constant, 8/10 and not relieved by motrin. Pt states she had an ear infection as a child. Pt does not use ear wax and denies any fever, chills, cough, congestion or sore throat. Timing/Duration: yesterday Severity: severe ENT Location: ear (R) Prearrival Treatment: over the counter meds Modifying Factors: Improves With: nothing Associated Symptoms: ear pain (R), No headache, No ringing of ears, No sore throat Allergies/Adverse Reactions: coconut Allergy (Intermediate, Verified 03/23/18 21:55) Tightness of Throat levofloxacin [From Levaquin] Allergy (Mild, Verified 03/23/18 21:55) Hives morphine Allergy (Mild, Verified 03/23/18 21:55) Tightness in Chest "stops breathing" Penicillins Allergy (Mild, Verified 03/23/18 21:55) Tightness in Chest "stops me breathing" pantoprazole sodium [From Protonix] Allergy (Verified 03/23/18 21:55) Stomach Cramps prednisone Allergy (Verified 03/23/18 21:55) "can't have it because my doctor said i can't" naproxen [From Naprosyn] Adverse Reaction (Mild, Verified 03/23/18 21:55) NOSE BLEED Home Medications: Gabapentin [Neurontin] 300 mg PO TID 10/15/17 [History] Omeprazole 20 MG [Prilosec 20 mg] 40 mg PO DAILY 10/15/17 [History] Hydroxyzine HCl 25 mg [Atarax 25 mg] 25 mg PO TID 12/20/17 [History] Hx Tetanus, Diphtheria Vaccination/Date Given: No Hx Influenza Vaccination/Date Given: Yes Hx Pneumococcal Vaccination/Date Given: No - Review of Systems Constitutional: No Fever, No Chills Eyes: No Symptoms Ears, Nose, & Throat: Ear Pain Respiratory: No Cough, No Dyspnea Cardiac: No Chest Pain, No Edema, No Syncope Abdominal/Gastrointestinal: Nausea, No Abdominal Pain, No Vomiting, No Diarrhea Genitourinary Symptoms: No Dysuria Musculoskeletal: No Back Pain, No Neck Pain Skin: No Rash Neurological: Dizziness, No Focal Weakness, No Sensory Changes Psychological: No Symptoms Endocrine: No Symptoms All Other Systems: Reviewed and Negative - Past Medical History Pertinent Past Medical History: Yes Neurological History: Migraines ENT History: Macular Degeneration Cardiac History: Other Respiratory History: COPD Endocrine Medical History: No Pertinent History, Hyperthyroidism, Hypothyroidism Musculoskeletal History: Osteoarthritis GI Medical History: Crohns Disease History: No Pertinent History Psycho-Social History: Anxiety, Depression, Other Female Reproductive Disorders: Cervical Cancer, Ovarian Cancer Other Medical History: PTSD per patient, fibromyalgia - Past Surgical History Past Surgical History: Yes Neuro Surgical History: No Pertinent History Cardiac: No Pertinent History Respiratory: No Pertinent History Gastrointestinal: Cholecystectomy Genitourinary: No Pertinent History Musculoskeletal: No Pertinent History Female Surgical History: Hysterectomy, Section Other Surgical History: Ablation uterine. Mass removed form left ovary. Hysterectomy. x two - Social History Smoking Status: Current every day smoker How long have you smoked: 20 years Exposure to second hand smoke: Yes Drug Use: none Patient Lives Alone: No - Female History Hx Now: No - Nursing Vital Signs Nursing Vital Signs: Initial Vital Signs Temperature 99.6 F 03/23/18 21:44 Pulse Rate 76 03/23/18 21:44 Respiratory Rate 18 03/23/18 21:44 Blood Pressure 121/83 03/23/18 21:44 O2 Sat by Pulse Oximetry 98 03/23/18 21:44 Pain Scale Pain Intensity 8 - Physical Exam General Appearance: mild distress, alert Eye Exam: bilateral eye: normal inspection, PERRL, EOMI Ear Exam: bilateral ear: auricle normal, canal normal, TM normal, bleeding, other (right ear tragus tenderness) Nasal Exam: normal inspection Throat Exam: pharynx normal, moist mucus membranes, No tonsillar exudate Neck Exam: supple Cardiovascular/Respiratory Exam: normal breath sounds, regular rate/rhythm Abdominal Exam: non-tender, soft Neurologic Exam: alert, oriented x 3, sensation nml, No motor deficits Skin Exam: normal color, warm, dry SpO2: 98 Oxygen Delivery: Room Air - Course Nursing assessment & vital signs reviewed: Yes Ordered Tests: Medication Summary Discontinued Medications Generic Name Dose Route Start Last Admin Trade Name Viridiana PRN Reason Stop Dose Admin Ketorolac Tromethamine 60 mg 03/23/18 21:55 03/23/18 22:06 Toradol 30 Mg Injection IM 03/23/18 21:56 60 mg STAT ONE Administration Ketorolac Tromethamine Confirm 03/23/18 22:00 Toradol 30 Mg Injection Administered 03/23/18 22:01 Dose 60 mg .ROUTE .STK-MED ONE Meclizine HCl 25 mg 03/23/18 21:57 03/23/18 22:06 Antivert 25 Mg PO 03/23/18 21:58 25 mg STAT ONE Administration Meclizine HCl Confirm 03/23/18 22:00 Antivert 25 Mg Administered 03/23/18 22:01 Dose 25 mg .ROUTE .STK-MED ONE Ondansetron HCl 4 mg 03/23/18 21:56 03/23/18 22:06 Zofran Odt 4 Mg PO 03/23/18 21:57 4 mg STAT ONE Administration Ondansetron HCl Confirm 03/23/18 22:01 Zofran Odt 4 Mg Administered 03/23/18 22:02 Dose 4 mg .ROUTE .STK-MED ONE - Progress Progress: improved Progress Note: 03/23/18 22:01 Pt has received toradol, meclizine and zofran for pain, vertigo and nausea. Pt has clinical symptoms of otitis externa. We do not have ciprodex but we will give a script for it. - Departure Time of Disposition: 22:03 Departure Disposition: Home Clinical Impression: Otitis externa Qualifiers: Otitis externa type: unspecified type Chronicity: acute Laterality: right Qualified Code(s): H60.501 - Unspecified acute noninfective otitis externa, right ear Condition: Stable Critical Care Time: No Referrals: SLADE SHEPPARD MD [Primary Care Provider] - Instructions: Outer Ear Infection (DC) Additional Instructions: Follow up with your primary care doctor if there is no improvement. Prescriptions: Ciprofloxacin HCl/Dexameth [Ciprodex Otic Suspension] 7.5 ml OT BID 7 Days #1 drops.susp Ketorolac Tromethamine [Toradol] 10 mg PO QID PRN #20 tablet PRN Reason: Pain Meclizine HCl 25 mg [Antivert 25 mg] 25 mg PO TID PRN #12 tablet PRN Reason: Dizziness Ondansetron [Zofran Odt] 4 mg PO QID PRN #12 tab.rapdis PRN Reason: Nausea/Vomiting
== END 2018-03-23 22:37 | disposition home or self-care (01) ==
LOC: ED 21:04
DX: H60.91 Unspecified otitis externa, right ear (principal); R42 Dizziness and giddiness; R11.0 Nausea
CPT/HCPCS: 96372; 99283; J1885; Q0162; A9270-GY

== ENCOUNTER 2018-04-26 15:02 | Observation (INO) | payer OTHER ==
[2018-04-26] MEDS ORDERED: BABY ASPIRIN 81 MG CHEW PO ONE (15:16)
--- NOTE | 2018-04-26 15:19 | ERPHSYRPT ---
- History of Present Illness Time Seen by Provider: 04/26/18 15:17 Historian: patient Exam Limitations: no limitations Patient Subjective Stated Complaint: pt reports a slamming fluttering feeling in her chest and sob beginning few days ago-states she had a cold a few weeks ago Triage Nursing Assessment: pt arrived to ed pale warm and [id number]- right radial pulse regular and strong Physician History: mild to mod off and on anterior chest pain dull rad to neck, no injury, +fam hx cad, +palpitations Aspirin Treatment Today: provided by ED Allergies/Adverse Reactions: coconut Allergy (Intermediate, Verified 04/26/18 15:11) Tightness of Throat levofloxacin [From Levaquin] Allergy (Mild, Verified 04/26/18 15:11) Hives morphine Allergy (Mild, Verified 04/26/18 15:11) Tightness in Chest "stops breathing" Penicillins Allergy (Mild, Verified 04/26/18 15:11) Tightness in Chest "stops me breathing" pantoprazole sodium [From Protonix] Allergy (Verified 04/26/18 15:11) Stomach Cramps prednisone Allergy (Verified 04/26/18 15:11) "can't have it because my doctor said i can't" naproxen [From Naprosyn] Adverse Reaction (Mild, Verified 04/26/18 15:11) NOSE BLEED Home Medications: No Reportable Medications [No Reported Medications] 04/26/18 [History] Hx Tetanus, Diphtheria Vaccination/Date Given: No Hx Influenza Vaccination/Date Given: Yes Hx Pneumococcal Vaccination/Date Given: No Immunizations Up to Date: Yes - Review of Systems Constitutional: No Fever Eyes: No Symptoms Ears, Nose, & Throat: No Symptoms Respiratory: Dyspnea Cardiac: Chest Pain Abdominal/Gastrointestinal: No Abdominal Pain Musculoskeletal: No Symptoms Skin: No Symptoms Neurological: No Symptoms - Past Medical History Pertinent Past Medical History: Yes Neurological History: Migraines ENT History: Macular Degeneration Cardiac History: Other Respiratory History: COPD Endocrine Medical History: No Pertinent History, Hyperthyroidism, Hypothyroidism Musculoskeletal History: Osteoarthritis GI Medical History: Crohns Disease History: No Pertinent History Psycho-Social History: Anxiety, Depression, Other Female Reproductive Disorders: Cervical Cancer, Ovarian Cancer Other Medical History: PTSD per patient, fibromyalgia - Past Surgical History Past Surgical History: Yes Neuro Surgical History: No Pertinent History Cardiac: No Pertinent History Respiratory: No Pertinent History Gastrointestinal: Cholecystectomy Genitourinary: No Pertinent History Musculoskeletal: No Pertinent History Female Surgical History: Hysterectomy, Section Other Surgical History: Ablation uterine. Mass removed form left ovary. Hysterectomy. x two - Social History Smoking Status: Current every day smoker How long have you smoked: yrs Exposure to second hand smoke: Yes Drug Use: none Patient Lives Alone: No - Female History Hx Last Menstrual Period: ablation Hx Now: No - Nursing Vital Signs Nursing Vital Signs: Initial Vital Signs Temperature 98.5 F 04/26/18 15:07 Pulse Rate 80 04/26/18 15:07 Respiratory Rate 18 04/26/18 15:07 Blood Pressure 107/71 04/26/18 15:07 O2 Sat by Pulse Oximetry 98 04/26/18 15:07 Pain Scale Pain Intensity 0 - Physical Exam General Appearance: no apparent distress Eye Exam: PERRL/EOMI Ears, Nose, Throat Exam: moist mucous membranes Neck Exam: normal inspection Respiratory Exam: normal breath sounds, lungs clear Cardiovascular Exam: regular rate/rhythm Gastrointestinal/Abdomen Exam: soft, No tenderness Extremity Exam: normal range of motion Neurologic Exam: alert, oriented x 3, cooperative Skin Exam: normal color, warm, dry SpO2 Interpretation: normal SpO2: 98 Oxygen Delivery: Room Air - Course Nursing assessment & vital signs reviewed: Yes EKG Interpreted by Me: Other (nsr 81 no stemi) - Radiology Exams Chest X-ray Interpretation: Discussed w/ radiologist, Negative Ordered Tests: Active Orders 24 hr Category Date Time Status IV Insertion STAT Care 04/26/18 15:16 Active CHEST 1 VIEW (PORTABLE) Stat Exams 04/26/18 15:16 Completed CBC W DIFF Stat Lab 04/26/18 15:29 Completed CMP Stat Lab 04/26/18 15:29 Completed D-DIMER QUANTITATION Stat Lab 04/26/18 15:29 Completed TROPONIN Q3H Lab 04/26/18 15:30 Completed TROPONIN Q3H Lab 04/26/18 18:30 Ordered TROPONIN Q3H Lab 04/26/18 21:30 Ordered TROPONIN Q3H Lab 04/27/18 00:30 Ordered TROPONIN Q3H Lab 04/27/18 03:30 Ordered Transfer Order Routine Transfer 04/26/18 Ordered Medication Summary Discontinued Medications Generic Name Dose Route Start Last Admin Trade Name Freq PRN Reason Stop Dose Admin Aspirin 324 mg 04/26/18 15:16 04/26/18 15:29 Baby Aspirin 81 Mg Chew PO 04/26/18 15:17 324 mg STAT ONE Administration Aspirin Confirm 04/26/18 15:30 Baby Aspirin 81 Mg Chew Administered 04/26/18 15:31 Dose 324 mg .ROUTE .STK-MED ONE Lab/Rad Data: Laboratory Result Diagrams 04/26/18 15:29 04/26/18 15:29 Laboratory Results 04/26/18 04/26/18 04/26/18 Range/Units 15:30 15:29 15:29 WBC (4.0-10.5) K/mm3 RBC (4.1-5.4) M/mm3 Hgb (12.0-16.0) gm/dl Hct (35-47) % MCV (78-100) fl MCH (26-32) pg MCHC (32-36) g/dl RDW (11.5-14.0) % Plt Count (150-450) K/mm3 MPV (6-9.5) fl Gran % (36.0-66.0) % Eos # (Auto) (0-0.5) Absolute Lymphs (auto) (1.0-4.6) Absolute Monos (auto) (0.0-1.3) Lymphocytes % (24.0-44.0) % Monocytes % (0.0-12.0) % Eosinophils % (0.00-5.0) % Basophils % (0.0-0.4) % Absolute Granulocytes (1.4-6.9) Basophils # (0-0.4) D-Dimer 389 (215-500) ng/mL Sodium 142 (137-145) mmol/L Potassium 3.5 (3.5-5.1) mmol/L Chloride 105 (98-107) mmol/L Carbon Dioxide 27 (22-30) mmol/L Anion Gap 13.0 (5-15) MEQ/L BUN 11 (7-17) mg/dL Creatinine 0.69 (0.52-1.04) mg/dL Estimated GFR > 60.0 ML/MIN Glucose 88 (74-106) mg/dL Calcium 9.2 (8.4-10.2) mg/dL Total Bilirubin 0.50 (0.2-1.3) mg/dL AST 13 L (14-36) U/L ALT 13 (0-35) U/L Alkaline Phosphatase 98 (38-126) U/L Troponin I < 0.012 (0.000-0.034) ng/mL Serum Total Protein 7.0 (6.3-8.2) g/dL Albumin 3.9 (3.5-5.0) g/dL 04/26/18 Range/Units 15:29 WBC 7.4 (4.0-10.5) K/mm3 RBC 5.13 (4.1-5.4) M/mm3 Hgb 14.5 (12.0-16.0) gm/dl Hct 44.1 (35-47) % MCV 86.0 (78-100) fl MCH 28.3 (26-32) pg MCHC 32.9 (32-36) g/dl RDW 14.6 H (11.5-14.0) % Plt Count 305 (150-450) K/mm3 MPV 9.9 H (6-9.5) fl Gran % 52.1 (36.0-66.0) % Eos # (Auto) 0.17 (0-0.5) Absolute Lymphs (auto) 2.68 (1.0-4.6) Absolute Monos (auto) 0.69 (0.0-1.3) Lymphocytes % 36.2 (24.0-44.0) % Monocytes % 9.3 (0.0-12.0) % Eosinophils % 2.3 (0.00-5.0) % Basophils % 0.1 (0.0-0.4) % Absolute Granulocytes 3.86 (1.4-6.9) Basophils # 0.01 (0-0.4) D-Dimer (215-500) ng/mL Sodium (137-145) mmol/L Potassium (3.5-5.1) mmol/L Chloride (98-107) mmol/L Carbon Dioxide (22-30) mmol/L Anion Gap (5-15) MEQ/L BUN (7-17) mg/dL Creatinine (0.52-1.04) mg/dL Estimated GFR ML/MIN Glucose (74-106) mg/dL Calcium (8.4-10.2) mg/dL Total Bilirubin (0.2-1.3) mg/dL AST (14-36) U/L ALT (0-35) U/L Alkaline Phosphatase (38-126) U/L Troponin I (0.000-0.034) ng/mL Serum Total Protein (6.3-8.2) g/dL Albumin (3.5-5.0) g/dL - Progress Progress: improved Air Movement: good Discussed with : Anuel Will see patient in: hospital (observation) Counseled pt/family regarding: lab results, diagnosis, rad results - Departure Time of Disposition: 16:46 Departure Disposition: Observation Clinical Impression: Chest pain Qualifiers: Chest pain type: precordial pain Qualified Code(s): R07.2 - Precordial pain Condition: Stable Critical Care Time: No Referrals: SLADE SHEPPARD MD [Primary Care Provider] -
[2018-04-26 15:30] LABS: BASOPHIL % 0.1 % (0.0-0.4); Basophil (Absolute #) 0.01 (0-0.4); Eosinophil % 2.3 % (0.00-5.0); Eosinophil (Absolute #) 0.17 (0-0.5); Granulocyte Absolute (ANC) 3.86 (1.4-6.9); Granulocytes % 52.1 % (36.0-66.0); Hematocrit 44.1 % (35-47); Hemoglobin 14.5 gm/dl (12.0-16.0); Lymphocyte (Absolute #) 2.68 (1.0-4.6); Lymphocytes % 36.2 % (24.0-44.0); Mean Corpuscular Hemoglobin 28.3 pg (26-32); Mean Corpuscular Hgb Concent. 32.9 g/dl (32-36); Mean Platelet Volume 9.9 fl (6-9.5); Monocyte (Absolute #) 0.69 (0.0-1.3); Monocytes % 9.3 % (0.0-12.0); Platelet Count 305 K/mm3 (150-450); Red Blood Count 5.13 M/mm3 (4.1-5.4); Red Cell Distribution Width 14.6 % (11.5-14.0); White Blood Count 7.4 K/mm3 (4.0-10.5)
[2018-04-26] MEDS ORDERED: BABY ASPIRIN 81 MG CHEW ONE (15:30)
--- NOTE | 2018-04-26 15:44 | XRAY ---
Indication: Chest pain and palpitations. Comparison: December 29, 2016. Portable chest again demonstrates normal heart, lungs, and bony thorax.
[2018-04-26 15:47] LABS: ALBUMIN 3.9 g/dL (3.5-5.0); ALKALINE PHOSPHATASE 98 U/L (38-126); BLOOD UREA NITROGEN 11 mg/dL (7-17); CHLORIDE 105 mmol/L (98-107); Calcium 9.2 mg/dL (8.4-10.2); Carbon Dioxide 27 mmol/L (22-30); Creatinine 1 0.69 mg/dL (0.52-1.04); Glucose 88 mg/dL (74-106); Potassium 3.5 mmol/L (3.5-5.1); SGOT/AST 13 U/L (14-36); SGPT/ALT 13 U/L (0-35); SODIUM 142 mmol/L (137-145)
[2018-04-26] MEDS ORDERED: MAALOX ES 30 ML UNIT DOSE PO PRN (17:52)
[2018-04-26] MEDS ORDERED: MILK OF MAGNESIA 30 ML PO PRN (17:52)
[2018-04-26] MEDS ORDERED: Senokot-S Tablet PO PRN (17:52)
[2018-04-26] MEDS ORDERED: Nitrostat 0.4 MG Tablet SL PRN (17:52)
[2018-04-26] MEDS ORDERED: Zofran 4 MG/2 ML VIAL IV PRN (17:52)
[2018-04-26] MEDS ORDERED: TYLENOL 325 MG PO PRN (17:52)
[2018-04-26 23:48] VITALS: O2SAT 97
[2018-04-27 07:40] VITALS: BP 85/50; PULSE 73
--- NOTE | 2018-04-27 08:16 | PCM.SSS ---
History of Present Illness - Chief Complaint Chief Complaint: chest pain History of Present Illness: is a 37 year old female who presented to the ER with complaints of palpitations and tight squeezing in her chest, has been going on intermittently for the last few days. Has seen Dr Julio and was last seen around 2 months ago with no changes. She has no pain or palpitations this morning, ME has been ruled out with serial enzymes, EKG shows no acute changes and there have been no events on telemetry since admission. - Review of Systems Constitutional: No Fever, No Chills Respiratory: No Cough, No Short Of Breath Cardiac: Chest Pain, Palpitations Abdominal/Gastrointestinal: No Abdominal Pain, No Nausea, No Vomiting, No Diarrhea Genitourinary Symptoms: No Dysuria Skin: No Symptoms, No Rash Neurological: No Dizziness, No Focal Weakness, No Sensory Changes All Other Systems: Reviewed and Negative Medications & Allergies Home Medications: Home Medication List Aspirin EC 325 mg [Ecotrin 325 MG] 325 mg PO DAILY 04/26/18 [History Confirmed 04/26/18] Metoprolol Tartrate 25 mg PO BID 04/26/18 [History Confirmed 04/26/18] Nitroglycerin [Nitrostat] 0.4 mg SL Q5MIN PRN MR X 3 PRN 04/26/18 [History Confirmed 04/26/18] Potassium Chloride [Klor-Con M20] 20 meq PO BID 04/26/18 [History Confirmed ] Allergies/Adverse Reactions: Allergies Allergy/AdvReac Type Severity Reaction Status Date / Time coconut Allergy Intermediate Tightness Verified 04/26/18 15:11 of Throat levofloxacin [From Levaquin] Allergy Mild Hives Verified 04/26/18 15:11 morphine Allergy Mild Tightness Verified 04/26/18 15:11 in Chest Penicillins Allergy Mild Tightness Verified 04/26/18 15:11 in Chest pantoprazole sodium Allergy Stomach Verified 04/26/18 15:11 [From Protonix] Cramps prednisone Allergy Verified 04/26/18 15:11 naproxen [From Naprosyn] AdvReac Mild Verified 04/26/18 15:11 - Past Medical History Past Medical History: Yes Neurological History: Migraines ENT History: Macular Degeneration Cardiac History: Other Respiratory History: Asthma, COPD Endocrine Medical History: Hypothyroidism Musculoskelatal History: Osteoarthritis GI Medical History: Crohns Disease, Gallbladder Disease History: No Pertinent History Pyscho-Social History: Anxiety, Depression, Other Reproductive Disorders: Cervical Cancer, Ovarian Cancer Comment: PTSD per patient, fibromyalgia - Female History Hx Last Menstrual Period: ablation Are you now?: No - Past Surgical History Past Surgical History: Yes Neuro Surgical History: No Pertinent History Cardiac History: No Pertinent History Respiratory Surgery: No Pertinent History GI Surgical History: Cholecystectomy Genitourinary Surgical Hx: No Pertinent History Musculskeletal Surgical Hx: No Pertinent History Female Surgical History: Hysterectomy, Section Other Surgical History: left ovary out with hysterectomy. Hysterectomy. C- section x two - Social History Smoking Status: Former smoker How long have you smoked: yrs Exposure to second hand smoke: Yes Alcohol: None Drug Use: none - Physical Exam Vital Signs: Vital Signs - 24 hr Temp Pulse Pulse Resp BP Pulse Ox 04/27/18 07:38 97 04/27/18 07:37 97.7 F 73 18 85/50 95 04/27/18 04:00 98.2 F 71 16 81/53 97 04/26/18 23:58 97 04/26/18 23:44 98.1 F 76 17 104/60 97 04/26/18 20:00 96 04/26/18 19:54 98.1 F 65 18 106/60 96 04/26/18 17:54 98.1 F 63 18 106/60 96 04/26/18 17:51 98.1 F 63 18 106/60 96 04/26/18 17:45 98.1 F 63 18 106/60 96 04/26/18 16:47 98 04/26/18 16:43 74 18 122/82 96 04/26/18 16:02 78 18 103/68 96 04/26/18 15:27 96 04/26/18 15:07 98.5 F 82 80 18 107/71 98 General Appearance: no apparent distress, alert Neurologic Exam: alert, oriented x 3 Eye Exam: PERRL/EOMI, eyes nml inspection Neck Exam: normal inspection, non-tender, supple, full range of motion Respiratory Exam: normal breath sounds, lungs clear, No respiratory distress Cardiovascular Exam: regular rate/rhythm, normal heart sounds, normal peripheral pulses Gastrointestinal/Abdomen Exam: soft, normal bowel sounds, No tenderness, No mass Extremity Exam: normal inspection, normal range of motion, pelvis stable Skin Exam: normal color, warm, dry, No rash Results - Labs Lab/Micro Results: Lab Results-Last 24 Hours 04/26/18 04/26/18 04/26/18 Range/Units 15:29 15:29 15:29 WBC 7.4 (4.0-10.5) K/mm3 RBC 5.13 (4.1-5.4) M/mm3 Hgb 14.5 (12.0-16.0) gm/dl Hct 44.1 (35-47) % MCV 86.0 (78-100) fl MCH 28.3 (26-32) pg MCHC 32.9 (32-36) g/dl RDW 14.6 H (11.5-14.0) % Plt Count 305 (150-450) K/mm3 MPV 9.9 H (6-9.5) fl Gran % 52.1 (36.0-66.0) % Eos # (Auto) 0.17 (0-0.5) Absolute Lymphs (auto) 2.68 (1.0-4.6) Absolute Monos (auto) 0.69 (0.0-1.3) Lymphocytes % 36.2 (24.0-44.0) % Monocytes % 9.3 (0.0-12.0) % Eosinophils % 2.3 (0.00-5.0) % Basophils % 0.1 (0.0-0.4) % Absolute Granulocytes 3.86 (1.4-6.9) Basophils # 0.01 (0-0.4) D-Dimer 389 (215-500) ng/mL Sodium 142 (137-145) mmol/L Potassium 3.5 (3.5-5.1) mmol/L Chloride 105 (98-107) mmol/L Carbon Dioxide 27 (22-30) mmol/L Anion Gap 13.0 (5-15) MEQ/L BUN 11 (7-17) mg/dL Creatinine 0.69 (0.52-1.04) mg/dL Estimated GFR > 60.0 ML/MIN Glucose 88 (74-106) mg/dL Calcium 9.2 (8.4-10.2) mg/dL Total Bilirubin 0.50 (0.2-1.3) mg/dL AST 13 L (14-36) U/L ALT 13 (0-35) U/L Alkaline Phosphatase 98 (38-126) U/L Troponin I (0.000-0.034) ng/mL Serum Total Protein 7.0 (6.3-8.2) g/dL Albumin 3.9 (3.5-5.0) g/dL Triglycerides (30-150) mg/dL Cholesterol (50-200) mg/dL LDL Cholesterol (30-100) mg/dL HDL Cholesterol (40-60) mg/dL Heart Disease Risk Ratio 04/26/18 04/26/18 04/26/18 Range/Units 15:30 18:45 21:45 WBC (4.0-10.5) K/mm3 RBC (4.1-5.4) M/mm3 Hgb (12.0-16.0) gm/dl Hct (35-47) % MCV (78-100) fl MCH (26-32) pg MCHC (32-36) g/dl RDW (11.5-14.0) % Plt Count (150-450) K/mm3 MPV (6-9.5) fl Gran % (36.0-66.0) % Eos # (Auto) (0-0.5) Absolute Lymphs (auto) (1.0-4.6) Absolute Monos (auto) (0.0-1.3) Lymphocytes % (24.0-44.0) % Monocytes % (0.0-12.0) % Eosinophils % (0.00-5.0) % Basophils % (0.0-0.4) % Absolute Granulocytes (1.4-6.9) Basophils # (0-0.4) D-Dimer (215-500) ng/mL Sodium (137-145) mmol/L Potassium (3.5-5.1) mmol/L Chloride (98-107) mmol/L Carbon Dioxide (22-30) mmol/L Anion Gap (5-15) MEQ/L BUN (7-17) mg/dL Creatinine (0.52-1.04) mg/dL Estimated GFR ML/MIN Glucose (74-106) mg/dL Calcium (8.4-10.2) mg/dL Total Bilirubin (0.2-1.3) mg/dL AST (14-36) U/L ALT (0-35) U/L Alkaline Phosphatase (38-126) U/L Troponin I < 0.012 < 0.012 < 0.012 (0.000-0.034) ng/mL Serum Total Protein (6.3-8.2) g/dL Albumin (3.5-5.0) g/dL Triglycerides (30-150) mg/dL Cholesterol (50-200) mg/dL LDL Cholesterol (30-100) mg/dL HDL Cholesterol (40-60) mg/dL Heart Disease Risk Ratio 04/27/18 04/27/18 04/27/18 Range/Units 00:40 03:57 03:57 WBC (4.0-10.5) K/mm3 RBC (4.1-5.4) M/mm3 Hgb (12.0-16.0) gm/dl Hct (35-47) % MCV (78-100) fl MCH (26-32) pg MCHC (32-36) g/dl RDW (11.5-14.0) % Plt Count (150-450) K/mm3 MPV (6-9.5) fl Gran % (36.0-66.0) % Eos # (Auto) (0-0.5) Absolute Lymphs (auto) (1.0-4.6) Absolute Monos (auto) (0.0-1.3) Lymphocytes % (24.0-44.0) % Monocytes % (0.0-12.0) % Eosinophils % (0.00-5.0) % Basophils % (0.0-0.4) % Absolute Granulocytes (1.4-6.9) Basophils # (0-0.4) D-Dimer (215-500) ng/mL Sodium (137-145) mmol/L Potassium (3.5-5.1) mmol/L Chloride (98-107) mmol/L Carbon Dioxide (22-30) mmol/L Anion Gap (5-15) MEQ/L BUN (7-17) mg/dL Creatinine (0.52-1.04) mg/dL Estimated GFR ML/MIN Glucose (74-106) mg/dL Calcium (8.4-10.2) mg/dL Total Bilirubin (0.2-1.3) mg/dL AST (14-36) U/L ALT (0-35) U/L Alkaline Phosphatase (38-126) U/L Troponin I < 0.012 < 0.012 (0.000-0.034) ng/mL Serum Total Protein (6.3-8.2) g/dL Albumin (3.5-5.0) g/dL Triglycerides 89 (30-150) mg/dL Cholesterol 184 (50-200) mg/dL LDL Cholesterol 123 H (30-100) mg/dL HDL Cholesterol 37 L (40-60) mg/dL Heart Disease Risk Ratio 5.0 - Radiology Impressions Radiology Exams & Impressions: Radiology Procedures Category Date Time Status CHEST 1 VIEW (PORTABLE) Stat Exams 04/26/18 15:16 Completed - Other Procedures and Tests Respiratory Therapy 04/28/18 05:00 EKG DAILY 04/29/18 05:00 EKG DAILY 04/30/18 05:00 EKG DAILY Assessment/Plan (1) Chest pain Current Visit: Yes Status: Acute Qualifiers: Chest pain type: precordial pain Qualified Code(s): R07.2 - Precordial pain Assessment & Plan: ME ruled out, will discharge home and have her f/u with Dr Julio Code(s): R07.9 - CHEST PAIN, UNSPECIFIED (2) Palpitation Current Visit: Yes Status: Acute Code(s): R00.2 - PALPITATIONS Hospital Summary - Vitals & Intake/Output Vital Signs: Vital Signs Temperature 97.7 F 04/27/18 07:37 Pulse Rate 73 04/27/18 07:37 Respiratory Rate 18 04/27/18 07:37 Blood Pressure 85/50 04/27/18 07:37 O2 Sat by Pulse Oximetry 97 04/27/18 07:38 Intake & Output: Intake & Output 04/24/18 04/25/18 04/26/18 04/27/18 11:59 11:59 11:59 11:59 Intake Total 960 Balance 960 Weight 132.6 kg - Lab Result Diagrams: 04/26/18 15:29 04/26/18 15:29 Lab Results-Last 24 Hrs: Lab Results-Last 24 Hours 04/26/18 04/26/18 04/26/18 Range/Units 15:29 15:29 15:29 WBC 7.4 (4.0-10.5) K/mm3 RBC 5.13 (4.1-5.4) M/mm3 Hgb 14.5 (12.0-16.0) gm/dl Hct 44.1 (35-47) % MCV 86.0 (78-100) fl MCH 28.3 (26-32) pg MCHC 32.9 (32-36) g/dl RDW 14.6 H (11.5-14.0) % Plt Count 305 (150-450) K/mm3 MPV 9.9 H (6-9.5) fl Gran % 52.1 (36.0-66.0) % Eos # (Auto) 0.17 (0-0.5) Absolute Lymphs (auto) 2.68 (1.0-4.6) Absolute Monos (auto) 0.69 (0.0-1.3) Lymphocytes % 36.2 (24.0-44.0) % Monocytes % 9.3 (0.0-12.0) % Eosinophils % 2.3 (0.00-5.0) % Basophils % 0.1 (0.0-0.4) % Absolute Granulocytes 3.86 (1.4-6.9) Basophils # 0.01 (0-0.4) D-Dimer 389 (215-500) ng/mL Sodium 142 (137-145) mmol/L Potassium 3.5 (3.5-5.1) mmol/L Chloride 105 (98-107) mmol/L Carbon Dioxide 27 (22-30) mmol/L Anion Gap 13.0 (5-15) MEQ/L BUN 11 (7-17) mg/dL Creatinine 0.69 (0.52-1.04) mg/dL Estimated GFR > 60.0 ML/MIN Glucose 88 (74-106) mg/dL Calcium 9.2 (8.4-10.2) mg/dL Total Bilirubin 0.50 (0.2-1.3) mg/dL AST 13 L (14-36) U/L ALT 13 (0-35) U/L Alkaline Phosphatase 98 (38-126) U/L Troponin I (0.000-0.034) ng/mL Serum Total Protein 7.0 (6.3-8.2) g/dL Albumin 3.9 (3.5-5.0) g/dL Triglycerides (30-150) mg/dL Cholesterol (50-200) mg/dL LDL Cholesterol (30-100) mg/dL HDL Cholesterol (40-60) mg/dL Heart Disease Risk Ratio 04/26/18 04/26/18 04/26/18 Range/Units 15:30 18:45 21:45 WBC (4.0-10.5) K/mm3 RBC (4.1-5.4) M/mm3 Hgb (12.0-16.0) gm/dl Hct (35-47) % MCV (78-100) fl MCH (26-32) pg MCHC (32-36) g/dl RDW (11.5-14.0) % Plt Count (150-450) K/mm3 MPV (6-9.5) fl Gran % (36.0-66.0) % Eos # (Auto) (0-0.5) Absolute Lymphs (auto) (1.0-4.6) Absolute Monos (auto) (0.0-1.3) Lymphocytes % (24.0-44.0) % Monocytes % (0.0-12.0) % Eosinophils % (0.00-5.0) % Basophils % (0.0-0.4) % Absolute Granulocytes (1.4-6.9) Basophils # (0-0.4) D-Dimer (215-500) ng/mL Sodium (137-145) mmol/L Potassium (3.5-5.1) mmol/L Chloride (98-107) mmol/L Carbon Dioxide (22-30) mmol/L Anion Gap (5-15) MEQ/L BUN (7-17) mg/dL Creatinine (0.52-1.04) mg/dL Estimated GFR ML/MIN Glucose (74-106) mg/dL Calcium (8.4-10.2) mg/dL Total Bilirubin (0.2-1.3) mg/dL AST (14-36) U/L ALT (0-35) U/L Alkaline Phosphatase (38-126) U/L Troponin I < 0.012 < 0.012 < 0.012 (0.000-0.034) ng/mL Serum Total Protein (6.3-8.2) g/dL Albumin (3.5-5.0) g/dL Triglycerides (30-150) mg/dL Cholesterol (50-200) mg/dL LDL Cholesterol (30-100) mg/dL HDL Cholesterol (40-60) mg/dL Heart Disease Risk Ratio 04/27/18 04/27/18 04/27/18 Range/Units 00:40 03:57 03:57 WBC (4.0-10.5) K/mm3 RBC (4.1-5.4) M/mm3 Hgb (12.0-16.0) gm/dl Hct (35-47) % MCV (78-100) fl MCH (26-32) pg MCHC (32-36) g/dl RDW (11.5-14.0) % Plt Count (150-450) K/mm3 MPV (6-9.5) fl Gran % (36.0-66.0) % Eos # (Auto) (0-0.5) Absolute Lymphs (auto) (1.0-4.6) Absolute Monos (auto) (0.0-1.3) Lymphocytes % (24.0-44.0) % Monocytes % (0.0-12.0) % Eosinophils % (0.00-5.0) % Basophils % (0.0-0.4) % Absolute Granulocytes (1.4-6.9) Basophils # (0-0.4) D-Dimer (215-500) ng/mL Sodium (137-145) mmol/L Potassium (3.5-5.1) mmol/L Chloride (98-107) mmol/L Carbon Dioxide (22-30) mmol/L Anion Gap (5-15) MEQ/L BUN (7-17) mg/dL Creatinine (0.52-1.04) mg/dL Estimated GFR ML/MIN Glucose (74-106) mg/dL Calcium (8.4-10.2) mg/dL Total Bilirubin (0.2-1.3) mg/dL AST (14-36) U/L ALT (0-35) U/L Alkaline Phosphatase (38-126) U/L Troponin I < 0.012 < 0.012 (0.000-0.034) ng/mL Serum Total Protein (6.3-8.2) g/dL Albumin (3.5-5.0) g/dL Triglycerides 89 (30-150) mg/dL Cholesterol 184 (50-200) mg/dL LDL Cholesterol 123 H (30-100) mg/dL HDL Cholesterol 37 L (40-60) mg/dL Heart Disease Risk Ratio 5.0 - Radiology Exams Ordered Rad Exams-Entire Visit: Radiology Procedures Category Date Time Status CHEST 1 VIEW (PORTABLE) Stat Exams 04/26/18 15:16 Completed - Procedures and Test Procedures and Tests throughout Hospitalization: Therapy Orders & Screens 04/26/18 17:52 EKG Q8HX2,QAMX3,PRN Comment: 04/27/18 01:00 EKG ROUTINE Comment: Diagnosis: chest pain 04/28/18 05:00 EKG DAILY Comment: Diagnosis: chest pain 04/29/18 05:00 EKG DAILY Comment: Diagnosis: chest pain 04/30/18 05:00 EKG DAILY Comment: Diagnosis: chest pain - Discharge Disposition: Home, Self-Care Condition: Stable Prescriptions: Continue Aspirin EC 325 mg [Ecotrin 325 MG] 325 mg PO DAILY Metoprolol Tartrate 25 mg PO BID Nitroglycerin [Nitrostat] 0.4 mg SL Q5MIN PRN MR X 3 PRN PRN Reason: Chest Pain Potassium Chloride [Klor-Con M20] 20 meq PO BID Follow up with: JEANINE JULIO [CONSULTING PHYSICIAN] - 1 Week
[2018-04-27] MEDS ORDERED: Nitrostat 0.4 MG Tablet SL PRN (08:47)
[2018-04-27] MEDS ORDERED: NON-FORMULARY ITEM (Potassium Chloride [Klor-Con M20] 20 MEQ) PO SCH (10:00)
[2018-04-27] MEDS ORDERED: Klor Con 10 MEQ PO SCH (10:00)
[2018-04-27] MEDS ORDERED: Ecotrin 325 MG PO SCH (10:00)
[2018-04-27] MEDS ORDERED: Lopressor 25MG Tab PO SCH (10:00)
== END 2018-04-27 09:08 | disposition home or self-care (01) ==
LOC: ED 15:02 → MED SURG 17:43
PROVIDERS: ADMIT Internal Medicine; ATTEND Family Medicine
DX: R07.89 Other chest pain (principal); R00.2 Palpitations; J44.9 Chronic obstructive pulmonary disease, unspecified; J45.909 Unspecified asthma, uncomplicated; E03.9 Hypothyroidism, unspecified; K50.90 Crohn's disease, unspecified, without complications; M19.90 Unspecified osteoarthritis, unspecified site; F41.8 Other specified anxiety disorders; Z79.899 Other long term (current) drug therapy; Z85.41 Personal history of malignant neoplasm of cervix uteri; Z85.43 Personal history of malignant neoplasm of ovary; M79.7 Fibromyalgia
CPT/HCPCS: 36000; 36415; 71045; 80053; 80061; 83721; 84484; 85025; 85379; 93005; 93268; 99285; A9270-GY; G0378

== ENCOUNTER 2022-02-27 22:08 | Emergency (ER) | payer OTHER ==
[2022-02-27 23:19] LABS: Absolute Neutrophil Ct (ANC) 9.31 x10^3/uL (1.4-6.9); Basophil (Absolute #) 0.06 x10^3/uL (0-0.4); Eosinophil % 1.1 % (0.00-5.0); Eosinophil (Absolute #) 0.15 x10^3/uL (0-0.5); Hematocrit 42.3 % (35-47); Hemoglobin 12.9 g/dL (12.0-16.0); Lymphocyte (Absolute #) 2.99 x10^3/uL (1.0-4.6); Lymphocytes % 21.9 % (24.0-44.0); Mean Cell Volume 84.9 fL (78-100); Mean Corpuscular Hemoglobin 25.9 pg (26-32); Mean Corpuscular Hgb Concent. 30.5 g/dL (32-36); Mean Platelet Volume 11.3 fL (7.5-11.0); Monocyte (Absolute #) 1.11 x10^3/uL (0.0-1.3); Monocytes % 8.1 % (0.0-12.0); Neutrophil % 68.3 % (36.0-66.0); Platelet Count 239 x10^3/uL (150-450); Red Blood Count 4.98 x10^6/uL (4.1-5.4); White Blood Count 13.7 x10^3/uL (4.0-10.5)
[2022-02-27 23:37] LABS: ALBUMIN 3.5 g/dL (3.5-5.0); ALKALINE PHOSPHATASE 84 U/L (38-126); ANION GAP 13.1 MEQ/L (5-15); BLOOD UREA NITROGEN 16 mg/dL (7-17); CHLORIDE 106 mmol/L (98-107); Calcium 9.1 mg/dL (8.4-10.2); Carbon Dioxide 24 mmol/L (22-30); Creatinine 1 0.74 mg/dL (0.52-1.04); EST GLOMERULAR FILTRATION RATE > 60.0 ML/MIN; Glucose 108 mg/dL (74-106); Potassium 3.9 mmol/L (3.5-5.1); SGOT/AST 24 U/L (14-36); SGPT/ALT 21 U/L (0-35); SODIUM 139 mmol/L (137-145); Total Protein 6.4 g/dL (6.3-8.2)
[2022-02-28] MEDS ORDERED: HYDROCODONE-ACETAMIN 10-325 MG PO ONE (01:19)
[2022-02-28 01:24] VITALS: BP 112/74; PULSE 97; O2SAT 98
--- NOTE | 2022-02-28 06:37 | ERPHSYRPT ---
- History of Present Illness Source: patient Exam Limitations: no limitations Patient Subjective Stated Complaint: pt states "I had labs drawn a week ago and I had an elevated D-Dimer and thyroid lab." Triage Nursing Assessment: pt came into the er via wheelchair; pt is axo x4; c/o abdnormal labs; pt states elevated d-dimer and thyroid labs; pt states 8/10 pain to left leg; strong pedal pulse to LLE; no redness or warmth present to LLE; tachycardic; clear heart tones; clear lung sounds in all lobes Method of Injury: unknown Occurred: last week Severity of Pain-Max: mild Severity of Pain-Current: mild Lower Extremities Pain: leg: left Modifying Factors: Improves With: nothing Associated Symptoms: none Allergies/Adverse Reactions: coconut Allergy (Intermediate, Verified 02/27/22 22:16) Tightness of Throat levofloxacin [From Levaquin] Allergy (Mild, Verified 02/27/22 22:16) Hives morphine Allergy (Mild, Verified 02/27/22 22:16) Tightness in Chest "stops breathing" Penicillins Allergy (Mild, Verified 02/27/22 22:16) Tightness in Chest "stops me breathing" pantoprazole sodium [From Protonix] Allergy (Verified 02/27/22 22:16) Stomach Cramps prednisone Allergy (Verified 02/27/22 22:16) "can't have it because my doctor said i can't" naproxen [From Naprosyn] Adverse Reaction (Mild, Verified 02/27/22 22:16) NOSE BLEED Home Medications: Clonidine HCl 0.1 mg [Clonidine 0.1 mg Tablet] 0.1 mg PO 02/27/22 [History] Methocarbamol [Robaxin] 500 mg PO DAILY 02/27/22 [History] Montelukast Sodium 10 mg [Singulair 10 MG] 10 mg PO DAILY 02/27/22 [History] Omeprazole 20 mg PO DAILY 02/27/22 [History] Pregabalin [Lyrica 150Mg] 150 mg PO DAILY 02/27/22 [History] Promethazine HCl 12.5 mg PO TID PRN 02/27/22 [History] Ropinirole HCl 0.5 mg [Requip 0.5 MG] 0.5 mg PO DAILY 02/27/22 [History] Topiramate 25 mg [Topamax 25 MG] 25 mg PO BID 02/27/22 [History] ondansetron HCL [Ondansetron HCl] 4 mg PO Q8H PRN 02/27/22 [History] Hx Tetanus, Diphtheria Vaccination/Date Given: Yes Hx Influenza Vaccination/Date Given: No Hx Pneumococcal Vaccination/Date Given: No Travel Risk - International Travel Have you traveled outside of the country in past 3 weeks: No - Coronavirus Screening Are you exhibiting any of the following symptoms?: No Close contact with a COVID-19 positive Pt in past 14-21 Days: No - Vaccine Status Have you recieved a Covid-19 vaccination: Yes [employer]: [employer] - Vaccination Dates Date of 2cond Vaccination (if applicable): n/a Comment: pt did not receive 2nd dose due to lupus - Review of Systems Constitutional: No Symptoms Eyes: No Symptoms Ears, Nose, & Throat: No Symptoms Respiratory: No Symptoms Cardiac: No Symptoms Abdominal/Gastrointestinal: No Symptoms Genitourinary Symptoms: No Symptoms Musculoskeletal: No Symptoms Skin: No Symptoms Neurological: No Symptoms Psychological: No Symptoms Endocrine: No Symptoms Hematologic/Lymphatic: No Symptoms Immunological/Allergic: No Symptoms All Other Systems: Reviewed and Negative - Past Medical History Pertinent Past Medical History: Yes Neurological History: Migraines ENT History: Macular Degeneration Cardiac History: Other Respiratory History: Asthma, COPD Endocrine Medical History: Hypothyroidism Musculoskeletal History: Fibromyalgia, Osteoarthritis GI Medical History: Crohns Disease, Gallbladder Disease History: No Pertinent History Psycho-Social History: Anxiety, Depression, Other Female Reproductive Disorders: Cervical Cancer, Ovarian Cancer Other Medical History: PTSD per patient, fibromyalgia, lupus - Past Surgical History Past Surgical History: Yes Neuro Surgical History: No Pertinent History Cardiac: No Pertinent History Respiratory: No Pertinent History Gastrointestinal: Cholecystectomy Genitourinary: No Pertinent History Musculoskeletal: No Pertinent History Female Surgical History: Hysterectomy, Section Other Surgical History: left ovary out with hysterectomy. Hysterectomy. C- section x two - Social History Smoking Status: Light tobacco smoker How long have you smoked: yrs Exposure to second hand smoke: Yes Drug Use: none Patient Lives Alone: No - Female History Hx Now: No - Nursing Vital Signs Nursing Vital Signs: Initial Vital Signs Temperature 98 F 02/27/22 22:22 Pulse Rate 110 H 02/27/22 22:22 Respiratory Rate 18 02/27/22 22:22 Blood Pressure 112/79 02/27/22 22:22 O2 Sat by Pulse Oximetry 97 02/27/22 22:22 Pain Scale Pain Intensity 8 - Physical Exam General Appearance: no apparent distress, anxiety, obese Eyes, Ears, Nose, Throat Exam: normal ENT inspection Neck Exam: normal inspection Cardiovascular/Respiratory Exam: chest non-tender, normal breath sounds, heart sounds normal Gastrointestinal/Abdominal Exam: non-tender Back Exam: normal inspection Legs Exam: left leg: swelling (mild at calf, knee) Knees Exam: right knee: non-tender, normal inspection, left knee: soft tissue tenderness (post knee, ? Bakers cyust), bilateral knee: normal range of motion, no evidence of injury Ankle Exam: bilateral ankle: non-tender, normal inspection, normal range of motion, no evidence of injury Foot Exam: bilateral foot: non-tender, normal inspection SpO2: 98 - Course Nursing assessment & vital signs reviewed: Yes - Radiology Ultrasound Exam Venous Lower Extremity Ultrasound: tele radiology report, Other (BAkers cyst on left knee, no DVT) Ordered Tests: Active Orders 24 hr Category Date Time Status VENOUS UNILAT/LIMITED EXTREMIT [US] Stat Exams 02/28/22 00:41 Taken CBC W DIFF Stat Lab 02/27/22 23:15 Completed CMP Stat Lab 02/27/22 23:15 Completed D-DIMER QUANTITATIVE Stat Lab 02/27/22 23:15 Completed Medication Summary Discontinued Medications Generic Name Dose Route Start Last Admin Trade Name Freq PRN Reason Stop Dose Admin Hydrocodone Bitart/Acetaminophen 1 tablet 02/28/22 01:19 02/28/22 01:21 Hydrocodone/Acetamin 10-325 Mg Tablet PO 02/28/22 01:20 1 tablet Q4H PRN ONE Administration Lab/Rad Data: Laboratory Result Diagrams 02/27/22 23:15 02/27/22 23:15 Laboratory Results 02/27/22 02/27/22 02/27/22 Range/Units 23:15 23:15 23:15 WBC 13.7 H (4.0-10.5) x10^3/uL RBC 4.98 (4.1-5.4) x10^6/uL Hgb 12.9 (12.0-16.0) g/dL Hct 42.3 (35-47) % MCV 84.9 (78-100) fL MCH 25.9 L (26-32) pg MCHC 30.5 L (32-36) g/dL RDW 16.0 H (11.5-14.0) % Plt Count 239 (150-450) x10^3/uL MPV 11.3 H (7.5-11.0) fL Gran % 68.3 H (36.0-66.0) % Immature Gran % (Auto) 0.2 (0.00-0.4) % Nucleat RBC Rel Count 0.0 (0.00-0.1) % Eos # (Auto) 0.15 (0-0.5) x10^3/uL Immature Gran # (Auto) 0.03 (0.00-0.03) x10^3u/L Absolute Lymphs (auto) 2.99 (1.0-4.6) x10^3/uL Absolute Monos (auto) 1.11 (0.0-1.3) x10^3/uL Absolute Nucleated RBC 0.00 (0.00-0.01) x10^3u/L Lymphocytes % 21.9 L (24.0-44.0) % Monocytes % 8.1 (0.0-12.0) % Eosinophils % 1.1 (0.00-5.0) % Basophils % 0.4 (0.0-0.4) % Absolute Granulocytes 9.31 H (1.4-6.9) x10^3/uL Basophils # 0.06 (0-0.4) x10^3/uL D-Dimer 0.77 H* (0.0-0.50) ng/mL Sodium 139 (137-145) mmol/L Potassium 3.9 (3.5-5.1) mmol/L Chloride 106 (98-107) mmol/L Carbon Dioxide 24 (22-30) mmol/L Anion Gap 13.1 (5-15) MEQ/L BUN 16 (7-17) mg/dL Creatinine 0.74 (0.52-1.04) mg/dL Estimated GFR > 60.0 ML/MIN Glucose 108 H (74-106) mg/dL Calcium 9.1 (8.4-10.2) mg/dL Total Bilirubin 0.60 (0.2-1.3) mg/dL AST 24 (14-36) U/L ALT 21 (0-35) U/L Alkaline Phosphatase 84 (38-126) U/L Serum Total Protein 6.4 (6.3-8.2) g/dL Albumin 3.5 (3.5-5.0) g/dL - Progress Progress: unchanged, improved Progress Note: 02/28/22 06:36 Bakers cyst, she wanted some pain med, few norco, seeePCP or ortho Counseled pt/family regarding: lab results, diagnosis, need for follow-up, rad results - Departure Departure Disposition: Home Clinical Impression: Hampton's cyst of knee Qualifiers: Laterality: left Qualified Code(s): M71.22 - Synovial cyst of popliteal space [Hampton], left knee Condition: Stable Critical Care Time: No Referrals: Provider,Unknown [Primary Care Provider] - Follow up/PCP as directed Instructions: Hampton's (Popliteal) Cyst Additional Instructions: Follow up with your Dr. or an orthopedic Dr. about the knee cyst. Prescriptions: Hydrocodone/Acetaminophen [Hydrocodone-Acetamin 10-325 mg] 1 tablet PO Q6H PRN PRN #12 tablet MDD 4 PRN Reason: Moderate Pain
--- NOTE | 2022-02-28 07:34 | XRAY ---
Indication: Leg swelling and elevated d-dimer. Two-dimensional sonogram and color Doppler imaging of the major venous vessels of the left leg performed. Comparison: March 28, 2015 No thrombus seen in the examined deep venous vessels of the left leg including greater saphenous vein. Veins demonstrate normal compressibility. Venous waveforms are normal with and without augmentation. Posterior knee demonstrates new 3.5 x 3.3 x 1.0 cm Hampton's cyst. Impression: 1. Left leg again negative for DVT. 2. New small Hampton's cyst. Comment: Preliminary report was given.
== END 2022-02-28 01:38 | disposition home or self-care (01) ==
LOC: ED 22:08
DX: M71.22 Synovial cyst of popliteal space [Baker], left knee (principal); R79.1 Abnormal coagulation profile; R94.6 Abnormal results of thyroid function studies; J44.9 Chronic obstructive pulmonary disease, unspecified; Z72.0 Tobacco use; Z79.899 Other long term (current) drug therapy
CPT/HCPCS: 36415; 80053; 85025; 85379; 93971; 99284; A9270-GY